=== PATIENT | female | born 1945 | race Caucasian/White ===

== ENCOUNTER 2018-01-20 14:35 | Inpatient (IN) | payer MEDICARE ==
[~2018-01-20] VITALS: Ht 165.1 cm; Wt 64.2 kg
[2018-01-20] MEDS ORDERED: DIPHTH/TETANUS/ACEL PERTUSSIS (BOOSTER) 0.5 ML VIAL/PFS IM ONE (14:42)
[2018-01-20] MEDS ORDERED: ceFAZolin 2 GM PREMIX 50 ML ONE (14:42)
[2018-01-20] MEDS ORDERED: ONDANSETRON HCL 4 MG/2 ML VIAL ONE (14:42)
[2018-01-20 14:44] VITALS: O2SAT 98
--- NOTE | 2018-01-20 14:54 | PD ---
HPI Chief Complaint: trauma alert Time Seen by Provider: 14:51 Travel History International Travel<30 days: No Contact w/Intl Traveler<30days: No Traveled to known affect area: No History of Present Illness HPI The patient is an older female, approximately 72 years old, who presents emergency department for possible open left ankle fracture. The patient was called a trauma alert in the field. The patient states she was walking with her walker earlier today when she lost balance and fell. The patient states she injured her left ankle during the fall. She denies striking her head or any loss of consciousness during the fall. She complains of pain over the medial aspect of the left ankle with her there is a laceration present. She does have a history of multiple left lower extremity surgeries in the past and is on chronic medications including pain medications and Valium. She denies any alcohol use. She denies any presyncopal symptoms such his lightheadedness, dizziness, chest pain, shortness of breath, or palpitations. Patient states she is allergic to morphine, was told as a child she is allergic to morphine, states fentanyl works well for her pain. The patient cannot recall her primary physician in the local area, goes back and forth from [place] to [place] depending on the time of year. PFSH Past Medical History Narrative Medical Anxiety, depression, chronic pain Past Surgical History Narrative Surgical Multiple left lower extremity surgeries Social History Tobacco Use: No Allergies-Medications (Allergen,Severity, Reaction): Coded Allergies: morphine (Verified Allergy, Unknown, 01/20/18) Review of Systems Except as stated in HPI: all other systems reviewed are Neg HENT: No: Headaches, Neck Pain Cardiovascular: No: Chest Pain or Discomfort Respiratory: No: Shortness of Breath Gastrointestinal: No: Nausea, Vomiting, Abdominal Pain Musculoskeletal: Positive: Pain Skin: Positive Other (as noted in the history of present illness) Neurologic: No: Headache, Paresthesia, Sensory Disturbance Psychiatric: Positive: Anxiety, Depression Physical Exam Narrative GENERAL: Awake, alert, 72-year-old female who appears her stated age and is in no acute respiratory distress. Appears slightly sedated. SKIN: Focused skin assessment warm/dry. HEAD: Atraumatic. Normocephalic. EYES: Pupils equal and round. No injection or drainage. ENT: No nasal bleeding or discharge. Mucous membranes pink and moist. NECK: Trachea midline. No JVD. CARDIOVASCULAR: Regular rate and rhythm. No murmur appreciated. RESPIRATORY: No accessory muscle use. Clear to auscultation. Breath sounds equal bilaterally. GASTROINTESTINAL: Abdomen soft, non-tender, nondistended. No rebound tenderness. MUSCULOSKELETAL: Left lower extremity reveals a laceration over the medial aspect of the left lower extremity crossing from just mid to the medial malleus superiorly, measures approximately 12 cm in length. Positive Doppler dorsalis pedal pulse. NEUROLOGICAL: Awake and alert. No obvious cranial nerve deficits. Motor grossly within normal limits. Normal speech. Sensation is intact to the medial , lateral, dorsal aspect. The patient is oriented to person, place, month, and year. PSYCHIATRIC: Appears somewhat anxious. Data Data Last Documented VS Vital Signs Date Time Temp Pulse Resp B/P (MAP) Pulse Ox O2 Delivery O2 Flow Rate FiO2 01/20/18 15:22 97.1 67 18 118/58 (78) 97 01/20/18 14:44 21 Orders Orders Fentanyl Inj (Fentanyl Inj) (01/20/18 14:42) Cefazolin 2 Gm Premix (Ancef 2 Gm Premix (01/20/18 14:42) Ondansetron Inj (Zofran Inj) (01/20/18 14:42) Sjsm-Eht-Psvndl (Booster) Inj (Boostrix (01/20/18 14:42) I-Stat Profile (01/20/18 14:46) Complete Blood Count With Diff (01/20/18 14:46) Prothrombin Time / Inr (Pt) (01/20/18 14:46) Act Partial Throm Time (Ptt) (01/20/18 14:46) Type And Screen (01/20/18 14:46) Chest, Single Ap (01/20/18 14:46) Pelvis, Ap Only (Routine) (01/20/18 14:46) Ct Brain W/O Iv Contrast(Rout) (01/20/18 14:46) Iv Access Insert/Monitor (01/20/18 14:46) Ecg Monitoring (01/20/18 14:46) Oximetry (01/20/18 14:46) Oxygen Administration (01/20/18 14:46) Tibia/Fibula (Ap/Lat) (01/20/18 ) Ct Ankle W/O Contrast (01/20/18 ) Consult Orthopedic (01/20/18 ) Labs Laboratory Tests Test 01/20/18 14:35 White Blood Count 4.2 TH/MM3 Red Blood Count 3.08 MIL/MM3 Hemoglobin 9.0 GM/DL Bedside Hemoglobin 7.8 G/DL Hematocrit 26.2 % Bedside Hematocrit 23.0 % Mean Corpuscular Volume 84.9 FL Mean Corpuscular Hemoglobin 29.1 PG Mean Corpuscular Hemoglobin Concent 34.3 % Red Cell Distribution Width 16.4 % Platelet Count 196 TH/MM3 Mean Platelet Volume 7.7 FL Neutrophils (%) (Auto) 66.3 % Lymphocytes (%) (Auto) 24.0 % Monocytes (%) (Auto) 7.9 % Eosinophils (%) (Auto) 1.4 % Basophils (%) (Auto) 0.4 % Neutrophils # (Auto) 2.8 TH/MM3 Lymphocytes # (Auto) 1.0 TH/MM3 Monocytes # (Auto) 0.3 TH/MM3 Eosinophils # (Auto) 0.1 TH/MM3 Basophils # (Auto) 0.0 TH/MM3 CBC Comment DIFF FINAL Differential Comment Prothrombin Time 11.2 SEC Prothromb Time International Ratio 1.1 RATIO Activated Partial Thromboplast Time 26.4 SEC Bedside Sodium 142 MMOL/L Bedside Potassium 3.7 MMOL/L Bedside Chloride MMOL/L Bedside Blood Urea Nitrogen 24 MG/DL Bedside Creatinine 0.9 MG/DL Bedside Glucose 83 MG/DL [facility] Medical Screen Exam Complete: Yes Emergency Medical Condition: Yes Medical Record Reviewed: Yes Interpretation(s) Laboratory Tests Test 01/20/18 14:35 White Blood Count 4.2 TH/MM3 Red Blood Count 3.08 MIL/MM3 Hemoglobin 9.0 GM/DL Bedside Hemoglobin 7.8 G/DL Hematocrit 26.2 % Bedside Hematocrit 23.0 % Mean Corpuscular Volume 84.9 FL Mean Corpuscular Hemoglobin 29.1 PG Mean Corpuscular Hemoglobin Concent 34.3 % Red Cell Distribution Width 16.4 % Platelet Count 196 TH/MM3 Mean Platelet Volume 7.7 FL Neutrophils (%) (Auto) 66.3 % Lymphocytes (%) (Auto) 24.0 % Monocytes (%) (Auto) 7.9 % Eosinophils (%) (Auto) 1.4 % Basophils (%) (Auto) 0.4 % Neutrophils # (Auto) 2.8 TH/MM3 Lymphocytes # (Auto) 1.0 TH/MM3 Monocytes # (Auto) 0.3 TH/MM3 Eosinophils # (Auto) 0.1 TH/MM3 Basophils # (Auto) 0.0 TH/MM3 CBC Comment DIFF FINAL Differential Comment Prothrombin Time 11.2 SEC Prothromb Time International Ratio 1.1 RATIO Activated Partial Thromboplast Time 26.4 SEC Bedside Sodium 142 MMOL/L Bedside Potassium 3.7 MMOL/L Bedside Chloride MMOL/L Bedside Blood Urea Nitrogen 24 MG/DL Bedside Creatinine 0.9 MG/DL Bedside Glucose 83 MG/DL Last Impressions Pelvis X-Ray 01/20/18 1446 Signed Impressions: Service Date/Time: Saturday, January 20, 2018 14:36 - CONCLUSION: 1. No acute fracture identified. Osteopenia. Shant Torres MD Head CT 01/20/18 1446 Signed Impressions: Service Date/Time: Saturday, January 20, 2018 14:56 - CONCLUSION: 1. No acute intracranial abnormalities. Chronic white matter ischemic changes. Shant Torres MD Chest X-Ray 01/20/18 1446 Signed Impressions: Service Date/Time: Saturday, January 20, 2018 14:36 - CONCLUSION: 1. Mild basilar airspace disease. No significant effusion. Shant Torres MD Tibia/Fibula X-Ray 01/20/18 0000 Signed Impressions: Service Date/Time: Saturday, January 20, 2018 14:36 - CONCLUSION: 1. Medial and lateral malleolar fractures. Osteopenia. Previous resection of the distal segment of fibula. Shant Torres MD Lower Extremity CT 01/20/18 0000 Signed Impressions: Service Date/Time: Saturday, January 20, 2018 15:01 - CONCLUSION: 1. Mildly displaced trimalleolar fracture with soft tissue laceration medially and air within the soft tissues around the ankle. Diffuse osteopenia. Shant Torres MD Differential Diagnosis Differential diagnosis includes open ankle fracture, open ankle dislocation, laceration, abrasion, contusion, postoperative changes, mechanical fall, syncope. Narrative Course ATLS protocol was followed. The patient's airway, breathing, circulation were intact upon arrival. IVs were established, labs are drawn and sent, the patient was placed on cardiac telemetry monitoring and continuous pulse oximetry monitoring. Chest x-ray, pelvis x-ray, x-ray left tibia/fibular were obtained. Chest x-ray and pelvis x-ray are unremarkable. X-ray of the left tibia/fibular reveals what appears to be postoperative changes with the mid distal fibula missing, there appears to be an acute fracture of the lateral malleus and of the medial malleus. The patient's pain was however with a Betadine dressing, short posterior leg split was applied. The patient was administered fentanyl, Zofran, Ancef, and gentamicin. The patient went to CT for CT of the brain and left ankle. A call was placed to the on-call orthopedic surgeon, Dr. Trejo, at 3:01 PM. I discussed the patient with Dr. Trejo, he reviewed the x-rays, he recommends nothing by mouth after midnight for possible surgical evaluation in washout tomorrow. The patient was evaluated and seen by the trauma surgeon, Dr. Dwyer, at 3:35 PM. The patient will be admitted to medical floor. Trauma Alert - Level Two Trauma Alert Level Two: Full trauma team activate Time Surgeon Called: 14:14 Physician Communication I discussed the patient with the orthopedic surgeon and the trauma surgeon. The patient will be admitted to the trauma service. Diagnosis Diagnosis: Primary Impression: Open left ankle fracture Qualified Codes: S82.892B - Other fracture of left lower leg, initial encounter for open fracture type I or II Admitting Physician Requests: Admit Condition: Stable Matias Sifuentes MD Jan 20, 2018 14:54
[2018-01-20 15:09] LABS: AUTOMATED NEUTROPHIL # 2.8 TH/MM3 (1.8-7.7); BASOPHIL % 0.4 % (0.0-2.0); EOSINOPHIL # 0.1 TH/MM3 (0-0.4); EOSINOPHIL % 1.4 % (0.0-4.0); HEMATOCRIT 26.2 % (35.0-46.0); MEAN CELL VOLUME 84.9 FL (80.0-100.0); MEAN CORPUSCULAR HEMOGLOBIN 29.1 PG (27.0-34.0); MEAN CORPUSCULAR HGB CONC 34.3 % (32.0-36.0); MEAN PLATELET VOLUME 7.7 FL (7.0-11.0); MONO % 7.9 % (0.0-8.0); MONOCYTE # 0.3 TH/MM3 (0-0.9); NEUT % 66.3 % (16.0-70.0); PLATELET COUNT 196 TH/MM3 (150-450); RED BLOOD COUNT 3.08 MIL/MM3 (4.00-5.30); RED CELL DISTRIBUTION WIDTH 16.4 % (11.6-17.2); WHITE BLOOD COUNT 4.2 TH/MM3 (4.0-11.0)
--- NOTE | 2018-01-20 15:10 | RADRPT ---
EXAM DATE/TIME: 01/20/2018 14:56 [facility] COMPARISON: No previous studies available for comparison. INDICATIONS : Trauma alert, fall from standing. RADIATION DOSE: 35.54 CTDIvol (mGy) MEDICAL HISTORY : Non-responsive. SURGICAL HISTORY : Non-responsive. ENCOUNTER: Initial ACUITY: 1 day PAIN SCALE: Non-responsive LOCATION: Bilateral head TECHNIQUE: Multiple contiguous axial images were obtained of the head. Using automated exposure control and adj ustment of the mA and/or kV according to patient size, radiation dose was kept as low as reasonably a chievable to obtain optimal diagnostic quality images. DICOM format image data is available electro nically for review and comparison. FINDINGS: White matter ischemic changes. Intracranial mass, hemorrhage or shift. No hydrocephalus. No acute bon y abnormalities. Mucosal thickening ethmoids. CONCLUSION: 1. No acute intracranial abnormalities. Chronic white matter ischemic changes. Shant Torres MD on January 20, 2018 at 15:06 Board Certified Radiologist. This report was verified electronically.
--- NOTE | 2018-01-20 15:20 | RADRPT ---
EXAM DATE/TIME: 01/20/2018 14:36 [facility] COMPARISON: No previous studies available for comparison. INDICATIONS : Trauma alert. Left ankle pain and laceration post fall. MEDICAL HISTORY : Unobtainable. SURGICAL HISTORY : Unobtainable. ENCOUNTER: Initial ACUITY: 1 day PAIN SCORE: 10/10 LOCATION: Left tibia/fibula. FINDINGS: A portion of the distal fibular shaft has been resected. There are fractures of the medial and latera l malleolus. Air in the soft tissues is present. Bones are osteopenic. CONCLUSION: 1. Medial and lateral malleolar fractures. Osteopenia. Previous resection of the distal segment of fi bula. Shant Torres MD on January 20, 2018 at 15:15 Board Certified Radiologist. This report was verified electronically.
--- NOTE | 2018-01-20 15:21 | RADRPT ---
EXAM DATE/TIME: 01/20/2018 14:36 [facility] COMPARISON: No previous studies available for comparison. INDICATIONS : Trauma alert. Fall. MEDICAL HISTORY : Unobtainable. SURGICAL HISTORY : Unobtainable. ENCOUNTER: Initial ACUITY: 1 day PAIN SCORE: 0/10 LOCATION: pelvis. FINDINGS: A single frontal view of the pelvis demonstrates no evidence of fracture. The bony pelvic ring is in tact. Bony mineralization is normal. The soft tissues are intact. CONCLUSION: 1. No acute fracture identified. Osteopenia. Shant Torres MD on January 20, 2018 at 15:18 Board Certified Radiologist. This report was verified electronically.
[2018-01-20 15:22] VITALS: BP 118/58; PULSE 67; RESP 18; TEMP 97.1; O2SAT 97
--- NOTE | 2018-01-20 15:22 | RADRPT ---
EXAM DATE/TIME: 01/20/2018 14:36 [facility] COMPARISON: No previous studies available for comparison. INDICATIONS : Trauma alert. Fall. MEDICAL HISTORY : Unobtainable. SURGICAL HISTORY : Unobtainable. ENCOUNTER: Initial ACUITY: 1 day PAIN SCORE: 0/10 LOCATION: Bilateral chest FINDINGS: A single view of the chest demonstrates mild basilar airspace disease. [id number] in superior vena cava. Heart size upper limits normal. Previous fixation lower cervical spine. CONCLUSION: 1. Mild basilar airspace disease. No significant effusion. Shant Torres MD on January 20, 2018 at 15:20 Board Certified Radiologist. This report was verified electronically.
--- NOTE | 2018-01-20 15:26 | RADRPT ---
EXAM DATE/TIME: 01/20/2018 15:01 [facility] COMPARISON: No previous studies available for comparison. INDICATIONS : Trauma alert, fall from standing. RADIATION DOSE: 7.29 CTDIvol (mGy) MEDICAL HISTORY : Non-responsive. SURGICAL HISTORY : Non-responsive. ENCOUNTER: Initial ACUITY: 1 day PAIN SCALE: Non-responsive LOCATION: Left ankle TECHNIQUE: Volumetric scanning of the ankle was performed. Using automated exposure control and adjustment of t he mA and/or kV according to patient size, radiation dose was kept as low as reasonably achievable to obtain optimal diagnostic quality images. DICOM format image data is available electronically for review and comparison. FINDINGS: There are mildly displaced fractures through the medial lateral malleolus and there is also a mildly displaced posterior malleolar fracture. The bones are osteopenic. There is a laceration in the soft t issues medially with air in the soft tissues. CONCLUSION: 1. Mildly displaced trimalleolar fracture with soft tissue laceration medially and air within the sof t tissues around the ankle. Diffuse osteopenia. Shant Torres MD on January 20, 2018 at 15:22 Board Certified Radiologist. This report was verified electronically.
[2018-01-20 15:28] LABS: INTERNATIONAL NORMALIZED RATIO 1.1 RATIO; PROTHROMBIN TIME - PATIENT 11.2 SEC (9.8-11.6)
[2018-01-20] MEDS ORDERED: MORPHINE SULFATE 4 MG/ML INJ IV PUSH PRN (16:00)
[2018-01-20] MEDS ORDERED: MORPHINE SULFATE 2 MG/ML INJ IV PUSH PRN (16:00)
[2018-01-20] MEDS ORDERED: MISCELLANEOUS NURSING INFORMATION XX SCH (16:00)
[2018-01-20] MEDS ORDERED: ONDANSETRON HCL 4 MG/2 ML VIAL IV PUSH PRN (16:00)
[2018-01-20] MEDS ORDERED: CHLORHEXIDINE GLUCONATE 2 % 1 PACK (2 CLOTHS) TOP PRN (16:00)
--- NOTE | 2018-01-20 16:06 | HHI.HP ---
History of Present Illness Primary Care Physician Unknown Admission Diagnosis Diagnoses: History of Present Illness 72 y.o female with PMHx of MS.chronic pain -seen by the ER as level2 trauma alert after a fall,as she was walking with her walker-patient tripped,work up shows an open left malleolar fx,CT head is negative,GCS 15,HD normal- Review of Systems Constitutional: COMPLAINS OF: Fatigue Endocrine: DENIES: Abnorml menstrual pattern, Heat/cold intolerance, Polydipsia , Polyuria, Polyphagia Eyes: DENIES: Blurred vision, Diplopia, Eye inflammation, Eye pain, Vision loss , Photosensitivity, Double Vision Ears, nose, mouth, throat: DENIES: Tinnitus, Hearing loss, Vertigo, Nasal discharge, Oral lesions, Throat pain, Hoarseness, Ear Pain, Running Nose, Epistaxis, Sinus Pain, Toothache, Odynophagia Respiratory: DENIES: Apneas, Cough, Snoring, Wheezing, Hemoptysis, Sputum production, Shortness of breath Gastrointestinal: DENIES: Abdominal pain, Black stools, Bloody stools, Constipation, Diarrhea, Nausea, Vomiting, Difficulty Swallowing, Anorexia Musculoskeletal: DENIES: Joint pain, Muscle aches, Stiffness, Joint Swelling, Back pain, Neck pain Integumentary: DENIES: Abnormal pigmentation, Pruritus, Rash, Nail changes, Breast masses, Breast skin changes, Nipple discharge Hematologic/lymphatic: DENIES: Bruising, Lymphadenopathy Immunologic/allergic: DENIES: Eczema, Urticaria Neurologic: COMPLAINS OF: Abnormal gait, Poor Balance Psychiatric: DENIES: Anxiety, Confusion, Mood changes, Depression, Hallucinations, Agitation, Suicidal Ideation, Homicidal Ideation, Delusions Past Family Social History Allergies: Coded Allergies: morphine (Verified Allergy, Unknown, 01/20/18) Past Medical History spinal fusion Past Surgical History MS,chronic pain Reported Medications pain [id number] recall Family History none Social History retired lives in [place] Physical Exam Vital Signs Vital Signs Date Time Temp Pulse Resp B/P (MAP) Pulse Ox O2 Delivery O2 Flow Rate FiO2 01/20/18 15:22 97.1 67 18 118/58 (78) 97 01/20/18 14:44 98 21 Physical Exam GENERAL: This is a well-nourished, well-developed patient, in no apparent distress. SKIN: . Cool and dry. HEAD: Atraumatic. Normocephalic. No temporal or scalp tenderness. EYES: Pupils equal round and reactive. Extraocular motions intact. No injection or drainage. ENT: Nose without bleedin. Airway patent. NECK: Trachea midline. No JVD or lymphadenopathy. Supple, nontender CARDIOVASCULAR: Regular rate and rhythm without murmurs, gallops, or rubs. RESPIRATORY: Clear to auscultation. Breath sounds equal bilaterally. No wheezes , rales, or rhonchi. GASTROINTESTINAL: Abdomen soft, non-tender, nondistended. No guarding. MUSCULOSKELETAL: left LE swelling deformity,open wound 10 cm-good DP,splint applied. NEUROLOGICAL: Awake and alert. Cranial nerves II through XII intact. Motor and sensory grossly within normal limits. Five out of 5 muscle strength in all muscle groups. Normal speech. Laboratory Laboratory Tests Test 01/20/18 14:35 White Blood Count 4.2 Red Blood Count 3.08 Hemoglobin 9.0 Bedside Hemoglobin 7.8 Hematocrit 26.2 Bedside Hematocrit 23.0 Mean Corpuscular Volume 84.9 Mean Corpuscular Hemoglobin 29.1 Mean Corpuscular Hemoglobin Concent 34.3 Red Cell Distribution Width 16.4 Platelet Count 196 Mean Platelet Volume 7.7 Neutrophils (%) (Auto) 66.3 Lymphocytes (%) (Auto) 24.0 Monocytes (%) (Auto) 7.9 Eosinophils (%) (Auto) 1.4 Basophils (%) (Auto) 0.4 Neutrophils # (Auto) 2.8 Lymphocytes # (Auto) 1.0 Monocytes # (Auto) 0.3 Eosinophils # (Auto) 0.1 Basophils # (Auto) 0.0 CBC Comment DIFF FINAL Differential Comment Prothrombin Time 11.2 Prothromb Time International Ratio 1.1 Activated Partial Thromboplast Time 26.4 Bedside Sodium 142 Bedside Potassium 3.7 Bedside Chloride Bedside Blood Urea Nitrogen 24 Bedside Creatinine 0.9 Bedside Glucose 83 Result Diagram: 01/20/18 1435 Caprini VTE Risk Assessment Caprini VTE Risk Assessment: Mod/High Risk (score >= 2) VTE Pharm Contraindication: High risk for bleeding Caprini Risk Assessment Model Point Value = 1 Point Value = 2 Point Value = 3 Point Value = 5 Age 41-60 Minor surgery BMI > 25 kg/m2 Swollen legs Varicose veins or History of unexplained or recurrent spontaneous Oral contraceptives or hormone replacement Sepsis (< 1 month) Serious lung disease, including pneumonia (< 1 month) Abnormal pulmonary function Acute myocardial infarction Congestive heart failure (< 1 month) History of inflammatory bowel disease Medical patient at bed rest Age 61-74 Arthroscopic surgery Major open surgery (> 45 min) Laparoscopic surgery (> 45 min) Malignancy Confined to bed (> 72 hours) Immobilizing plaster cast Central venous access Age >= 75 History of VTE Family history of VTE Factor V Leiden Prothrombin [id number] Lupus anticoagulant Anticardiolipin antibodies Elevated serum homocysteine Heparin-induced thrombocytopenia Other congenital or acquired thrombophilia Stroke (< 1 month) Elective arthroplasty Hip, pelvis, or leg fracture Acute spinal cord injury (< 1 month) Prophylaxis Regimen Total Risk Factor Score Risk Level Prophylaxis Regimen 0-1 Low Early ambulation 2 Moderate Order ONE of the following: *Sequential Compression Device (SCD) *Heparin 5000 units SQ BID 3-4 Higher Order ONE of the following medications: *Heparin 5000 units SQ TID *Enoxaparin/Lovenox 40 mg SQ daily (WT < 150 kg, CrCl > 30 mL/min) *Enoxaparin/Lovenox 30 mg SQ daily (WT < 150 kg, CrCl > 10-29 mL/min) *Enoxaparin/Lovenox 30 mg SQ BID (WT < 150 kg, CrCl > 30 mL/min) AND/OR *Sequential Compression Device (SCD) 5 or more Highest Order ONE of the following medications: *Heparin 5000 units SQ TID (Preferred with Epidurals) *Enoxaparin/Lovenox 40 mg SQ daily (WT < 150 kg, CrCl > 30 mL/min) *Enoxaparin/Lovenox 30 mg SQ daily (WT < 150 kg, CrCl > 10-29 mL/min) *Enoxaparin/Lovenox 30 mg SQ BID (WT < 150 kg, CrCl > 30 mL/min) AND *Sequential Compression Device (SCD) Assessment and Plan Assessment and Plan open trimalleolar fx left admit to med/surg pain control ortho consult-case dw ortho surgeon by the ER physician iv abx given-will be continued medicine consult Anna Dwyer MD Jan 20, 2018 16:06
[2018-01-20] MEDS: cefTRIAXone INJ 1,000 MG in SODIUM CHLORIDE 0.9% INJ 100 ML IV SCH (17:03)
[2018-01-20] MEDS: HYDROmorphone HCL PF 2 MG/ML VIAL IV PUSH PRN (17:03)
--- NOTE | 2018-01-20 17:03 | PD.CONS ---
HPI Service [facility] Consult Requested By Reason for Consult Medical management Primary Care Physician Unknown Diagnoses: (1) Multiple sclerosis (2) Open left ankle fracture History of Present Illness Vira Wong female brought to ED under trauma alter after falling at home and sustaining fracture to left ankle. Patient repots a PMH of MS, chronic pain and recent treatment for UTI. is at bedside and repots patient was recently discharged from [facility]. She was treated for UTI and then discharged home. Patient continues to have dysuria along with fevers although does not repot most recent episode of fever. She follows up with her PCP and had UA done this past Sunday with pending results. Patient repots that today she was home alone and was making her way to the bathroom with the use of her walker when she fell. She repots that she does not clearly remember how she fell , but does remember protecting her head as much as possible. was out and patient reports she was on the floor for 1.5hrs before she was discovered by . She is currently having left leg pain and right leg pain. Repots left leg pain worse and describes pain as throbbing, nurse at bedside to administer Dilaudid, patient asking for Fentanyl since this is the only thing that works for her pain per patient. Nurse verifies with patient and she is agreeable after all to take Dilaudid for pain. Patient continues to repots suprapubic pain as well as dysuria, no chills, nausea, vomiting, cough, SOB or chest pain. She repots that at home she will have diarrhea and constipation alternating. She does not remember her last BM, states it has been several day, repots she takes MiraLAX BID at home. She has been following up with a neurologist in [place] for her MS and repots that she was due to be started on a new medication for this once her hepatitis panel came back negative. She will often have tremors and jerks due to MS. Review of Systems Except as stated in HPI: all other systems reviewed are Neg Past Family Social History Allergies: Coded Allergies: morphine (Verified Allergy, Unknown, 01/20/18) Past Medical History MS Chronic pain Past Surgical History 3 cervical neck fusions and Kyphoplasty Tonsillectomy appendectomy Social History Lives at home with recently moved here 6 months ago from [place]. Physical Exam Vital Signs Vital Signs Date Time Temp Pulse Resp B/P (MAP) Pulse Ox O2 Delivery O2 Flow Rate FiO2 01/20/18 15:22 97.1 67 18 118/58 (78) 97 01/20/18 14:44 98 21 Physical Exam GENERAL: This is a well-nourished, well-developed patient, in no apparent distress. SKIN: No rashes, ecchymoses or lesions. Cool and dry. Right ankle with mild redness noted, no ecchymosis noted. HEAD: Atraumatic. Normocephalic. No temporal or scalp tenderness. EYES: Pupils equal round and reactive. Extraocular motions intact. No scleral icterus. No injection or drainage. ENT: Nose without bleeding, purulent drainage. Throat without erythema. Airway patent. NECK: Trachea midline. No JVD. Supple, nontender. CARDIOVASCULAR: Regular rate and rhythm without murmurs, gallops, or rubs. RESPIRATORY: Clear to auscultation. Breath sounds equal bilaterally. No wheezes , rales, or rhonchi. GASTROINTESTINAL: Abdomen soft, suprapubic tenderness with palpation, nondistended. No guarding. MUSCULOSKELETAL: Bilateral upper extremities with scattered ecchymotic spots. Right calf tenderness, no warmth, edema or redness on calf noted. Left leg in splint, toes pink and warm. NEUROLOGICAL: Awake and alert. Cranial nerves II through XII intact. Motor and sensory grossly within normal limits. Moves bilateral upper extremities without difficulty, and RLE. Normal speech. Laboratory Laboratory Tests Test 01/20/18 14:35 White Blood Count 4.2 Red Blood Count 3.08 Hemoglobin 9.0 Bedside Hemoglobin 7.8 Hematocrit 26.2 Bedside Hematocrit 23.0 Mean Corpuscular Volume 84.9 Mean Corpuscular Hemoglobin 29.1 Mean Corpuscular Hemoglobin Concent 34.3 Red Cell Distribution Width 16.4 Platelet Count 196 Mean Platelet Volume 7.7 Neutrophils (%) (Auto) 66.3 Lymphocytes (%) (Auto) 24.0 Monocytes (%) (Auto) 7.9 Eosinophils (%) (Auto) 1.4 Basophils (%) (Auto) 0.4 Neutrophils # (Auto) 2.8 Lymphocytes # (Auto) 1.0 Monocytes # (Auto) 0.3 Eosinophils # (Auto) 0.1 Basophils # (Auto) 0.0 CBC Comment DIFF FINAL Differential Comment Prothrombin Time 11.2 Prothromb Time International Ratio 1.1 Activated Partial Thromboplast Time 26.4 Bedside Sodium 142 Bedside Potassium 3.7 Bedside Chloride Bedside Blood Urea Nitrogen 24 Bedside Creatinine 0.9 Bedside Glucose 83 Result Diagram: 01/20/18 1435 Imaging Last Impressions Pelvis X-Ray 01/20/18 1446 Signed Impressions: Service Date/Time: Saturday, January 20, 2018 14:36 - CONCLUSION: 1. No acute fracture identified. Osteopenia. Shant Torres MD Head CT 01/20/18 1446 Signed Impressions: Service Date/Time: Saturday, January 20, 2018 14:56 - CONCLUSION: 1. No acute intracranial abnormalities. Chronic white matter ischemic changes. Shant Torres MD Chest X-Ray 01/20/18 1446 Signed Impressions: Service Date/Time: Saturday, January 20, 2018 14:36 - CONCLUSION: 1. Mild basilar airspace disease. No significant effusion. Shant Torres MD Tibia/Fibula X-Ray 01/20/18 0000 Signed Impressions: Service Date/Time: Saturday, January 20, 2018 14:36 - CONCLUSION: 1. Medial and lateral malleolar fractures. Osteopenia. Previous resection of the distal segment of fibula. Shant Torres MD Lower Extremity CT 01/20/18 0000 Signed Impressions: Service Date/Time: Saturday, January 20, 2018 15:01 - CONCLUSION: 1. Mildly displaced trimalleolar fracture with soft tissue laceration medially and air within the soft tissues around the ankle. Diffuse osteopenia. Shant Torres MD Assessment and Plan Assessment and Plan Gender female admitted as a trauma alert after falling at home with open left ankle fracture. Patient seen and evaluated by ED physician and trauma MD, will be admitted to under trauma services. [facility] consulted to assist with ongoing medical management of patient. Open left medial and lateral malleolar fractures - Patient seen and evaluated by trauma services, admit to medical surgical floor. - Left leg/foot splint applied in the ED, received fentanyl, Zofran, Ancef, and gentamicin - Head CT with no acute intracranial abnormalities -Pelvis x-ray with no acute fractures -Rocephin IV continued by trauma services - Orthopedic services consulted for likely surgical intervention in the AM, n.p.o. after midnight -Pain control with IV Dilaudid Right calf pain - No visible injury noted although does endorse pain with calf palpation, full range of motion. -We will check right lower extremity ultrasound. MS -Patient reports that she is on baclofen as well as Neurontin at home with little relief -Recently seen by her neurologist with plans of starting her on new medication once hepatitis panel resulted -Offered to home dose of baclofen as well as Neurontin, nurse to med rec. UTI -Reports fevers at home prior to fall and ongoing dysuria. Recently had a UA done this past Sunday. -CBC reviewed with no leukocytosis, afebrile on presentation -Offered to recheck UA, declined. Would like to await results of Fridays UA by PCP DVT prophylaxis-hold due to planned surgical procedure in AM Discussed with patient and at bedside. Thank you for this consultation, will continue to follow along. Problem Qualifiers (1) Open left ankle fracture: Qualified Codes: S82.892B - Other fracture of left lower leg, initial encounter for open fracture type I or II Melanie Palomino Jan 20, 2018 17:03
[2018-01-20] MEDS: LACTATED RINGER'S 1000 ML INJ 1,000 ML IV SCH (17:59)
[2018-01-20] MEDS: ACETAMINOPHEN 1000 MG/100 ML 100 ML IV SCH ×2 (17:59→21:27)
--- NOTE | 2018-01-20 18:04 | RADRPT ---
EXAM DATE/TIME: 01/20/2018 17:29 [facility] COMPARISON: No previous studies available for comparison. INDICATIONS : Fall. MEDICAL HISTORY : Gait problems. Fatigue. Ankle fracture. SURGICAL HISTORY : None. ENCOUNTER: Initial ACUITY: 1 day PAIN SCORE: 2/10 LOCATION: Bilateral neck PEAK SYSTOLIC VELOCITIES (cm/sec): ICA/CCA RATIO: Right: 0.8 Left: 0.9 ICA: Right: 79.8 Left: 102.7 CCA: Right: 95.7 Left: 109.5 ECA: Right: 55.6 Left: 93.8 VERTEBRAL: Right: 51.2 antegrade Left: 64.2 antegrade Elevated flow velocities and ICA/CCA ratios have been found to correlate with increased degrees of vessel stenosis, calculated as percentage of diameter relative to a normal segment of distal ICA/CCA FINDINGS: RIGHT CAROTID: No significant stenosis is visualized. The waveforms are within normal limits. LEFT CAROTID: No significant stenosis is visualized. The waveforms are within normal limits. VERTEBRAL ARTERIES: Antegrade flow is seen in both vertebral arteries. MISCELLANEOUS: None. CONCLUSION: Normal hemodynamic profile both carotids. Satinder López MD on January 20, 2018 at 18:01 Board Certified Radiologist. This report was verified electronically.
[2018-01-20 18:06] VITALS: BP 100/52; PULSE 73; RESP 18; O2SAT 99
[2018-01-20] MEDS ORDERED: LORazepam 2 MG/ML VIAL ONE (19:09)
--- NOTE | 2018-01-20 19:16 | RADRPT ---
EXAM DATE/TIME: 01/20/2018 18:54 [facility] COMPARISON: No previous studies available for comparison. INDICATIONS : Right leg pain. MEDICAL HISTORY : Gait problems. Fatigue. Ankle fracture. SURGICAL HISTORY : ENCOUNTER: Initial ACUITY: 2 day PAIN SCORE: 6/10 LOCATION: Right leg. TECHNIQUE: Venous ultrasound of the leg was performed from the inguinal ligament to the proximal calf. Real-dyllan e, color Doppler and spectral tracing, compression and augmentation techniques were used. FINDINGS: There is normal compressibility of the deep venous system from the inguinal region to the proximal ca lf. No echogenic clot is seen in the lumen of the common femoral, femoral, popliteal, and posterior tibial veins. There is a normal response of the venous system to proximal and distal augmentation an d respiration. CONCLUSION: 1. Negative for deep venous thrombosis. Satinder López MD on January 20, 2018 at 19:13 Board Certified Radiologist. This report was verified electronically.
[2018-01-20 20:00] VITALS: BP 138/95; PULSE 72; RESP 18; TEMP 97.2; O2SAT 98
[2018-01-20] MEDS ORDERED: DOCUSATE SODIUM 100 MG CAP PO SCH (21:00)
[2018-01-20] MEDS: FAMOTIDINE 20 MG TAB PO SCH (21:26)
[2018-01-20] MEDS: MAGNESIUM HYDROXIDE SUSP 30 ML CUP PO SCH (21:26)
[2018-01-21 00:48] VITALS: BP 91/45; PULSE 91; RESP 18; TEMP 96.6; O2SAT 92
[2018-01-21] MEDS ORDERED: TYLE325T PO (00:51)
[2018-01-21] MEDS ORDERED: LACTCHW3 CHEW (00:51)
[2018-01-21] MEDS ORDERED: DIME240C PO (00:51)
[2018-01-21] MEDS ORDERED: POLY17S PO (00:51)
[2018-01-21] MEDS ORDERED: FLUO20CA12 PO (00:51)
[2018-01-21] MEDS ORDERED: THYR15 PO (00:51)
[2018-01-21] MEDS ORDERED: PSYLPOW4 PO (00:51)
[2018-01-21] MEDS ORDERED: TRAZ300T2 PO (00:51)
[2018-01-21] MEDS ORDERED: ASPI1TAB57 PO (00:51)
[2018-01-21] MEDS ORDERED: FLUC200T2 PO (00:51)
[2018-01-21] MEDS ORDERED: DIAZ2TAB PO (00:51)
[2018-01-21] MEDS ORDERED: BUPR1TAB70 PO (00:51)
[2018-01-21] MEDS ORDERED: VITA1000 PO (00:51)
[2018-01-21] MEDS ORDERED: SENN8.6T81 PO (00:51)
[2018-01-21] MEDS ORDERED: MIRA25TA PO (00:51)
[2018-01-21] MEDS ORDERED: PANT20TA2 PO (00:51)
[2018-01-21] MEDS ORDERED: ONDA4TAB7 SL (00:51)
[2018-01-21] MEDS ORDERED: CEFU1TAB20 PO (00:51)
[2018-01-21] MEDS ORDERED: TEMA7.5C PO (00:51)
[2018-01-21] MEDS ORDERED: GABA300C5 PO (00:51)
[2018-01-21] MEDS ORDERED: OXYC-395 PO (00:51)
[2018-01-21] MEDS ORDERED: DOCU8.6T PO (00:51)
[2018-01-21] MEDS: HYDROmorphone HCL PF 2 MG/ML VIAL IV PUSH PRN ×5 (02:12→21:58)
[2018-01-21] MEDS ORDERED: CHLORHEXIDINE GLUCONATE 2 % 1 PACK (2 CLOTHS) TOP SCH (04:00)
[2018-01-21] MEDS: ACETAMINOPHEN 1000 MG/100 ML 100 ML IV SCH ×2 (04:06→10:23)
[2018-01-21] MEDS: cefTRIAXone INJ 1,000 MG in SODIUM CHLORIDE 0.9% INJ 100 ML IV SCH (04:21)
[2018-01-21 04:26] LABS: AUTOMATED NEUTROPHIL # 5.1 TH/MM3 (1.8-7.7); BASOPHIL % 0.3 % (0.0-2.0); EOSINOPHIL # 0.1 TH/MM3 (0-0.4); EOSINOPHIL % 1.4 % (0.0-4.0); HEMATOCRIT 26.4 % (35.0-46.0); HEMOGLOBIN 9.1 GM/DL (11.6-15.3); LYMPHOCYTE # 0.5 TH/MM3 (1.0-4.8); MEAN CELL VOLUME 85.4 FL (80.0-100.0); MEAN CORPUSCULAR HEMOGLOBIN 29.6 PG (27.0-34.0); MEAN CORPUSCULAR HGB CONC 34.7 % (32.0-36.0); MEAN PLATELET VOLUME 7.8 FL (7.0-11.0); MONO % 7.7 % (0.0-8.0); MONOCYTE # 0.5 TH/MM3 (0-0.9); NEUT % 82.6 % (16.0-70.0); PLATELET COUNT 180 TH/MM3 (150-450); RED BLOOD COUNT 3.09 MIL/MM3 (4.00-5.30); RED CELL DISTRIBUTION WIDTH 16.6 % (11.6-17.2); WHITE BLOOD COUNT 6.2 TH/MM3 (4.0-11.0)
[2018-01-21 04:34] VITALS: BP 92/43; PULSE 90; RESP 18; TEMP 96.8; O2SAT 93
[2018-01-21 04:49] LABS: BICARBONATE 26.3 MEQ/L (21.0-32.0)
[2018-01-21] MEDS ORDERED: DIAZEPAM 2 MG TAB PO PRN (07:45)
[2018-01-21 08:00] VITALS: BP 99/50; PULSE 86; RESP 20; TEMP 98.4; O2SAT 97
[2018-01-21] MEDS: GABAPENTIN 300 MG CAP PO SCH ×2 (09:00→18:00)
[2018-01-21] MEDS: DOCUSATE SODIUM 50 MG/SENNA 8.6 MG TAB PO SCH ×2 (09:00→20:30)
[2018-01-21] MEDS: CHOLECALCIFEROL (VIT D3) 1000 UNIT TAB PO SCH (09:00)
[2018-01-21] MEDS: POLYETHYLENE GLYCOL 17 GM PKG PO SCH ×2 (09:00→20:30)
[2018-01-21] MEDS ORDERED: DIMETHYL FUMARATE 240 MG PO SCH (09:00)
[2018-01-21] MEDS: FAMOTIDINE 20 MG TAB PO SCH ×2 (09:00→20:30)
[2018-01-21] MEDS ORDERED: buPROPion HCL 100 MG SUSTAINED RELEASE TAB PO SCH (09:00)
[2018-01-21] MEDS: MAGNESIUM HYDROXIDE SUSP 30 ML CUP PO SCH ×2 (09:00→20:30)
[2018-01-21] MEDS: buPROPion HCL 150 MG SUSTAINED RELEASE TAB PO SCH ×2 (09:41→20:31)
[2018-01-21] MEDS: FLUoxetine HCL 20 MG CAP PO SCH ×2 (09:42→20:29)
[2018-01-21] MEDS ORDERED: GENTAMICIN SULFATE 80 MG/2 ML VIAL ONE ×2 (10:27)
--- NOTE | 2018-01-21 10:31 | PD.ORT.PN ---
Subjective Subjective Remarks Recently discharged from rehabilitation. She has had gait instability and some lightheadedness. She had a trip and fall at home with open ankle injury to left side Objective Vitals Vital Signs Date Time Temp Pulse Resp B/P (MAP) Pulse Ox O2 Delivery O2 Flow Rate FiO2 01/21/18 08:00 98.4 86 20 99/50 (66) 97 01/21/18 04:34 96.8 90 18 92/43 (59) 93 01/21/18 00:48 96.6 91 18 91/45 (60) 92 01/20/18 20:00 97.2 72 18 138/95 (109) 98 01/20/18 19:56 01/20/18 18:52 18 01/20/18 18:47 18 01/20/18 18:06 73 18 100/52 (68) 99 Room Air 01/20/18 15:22 97.1 67 18 118/58 (78) 97 01/20/18 14:44 98 21 I/O 01/20/18 01/20/18 01/20/18 01/21/18 01/21/18 01/21/18 07:00 15:00 23:00 07:00 15:00 23:00 Intake Total 300 ml 711 ml Output Total 550 ml Balance 300 ml 161 ml Intake IV Total 300 ml 711 ml Output Urine Total 550 ml Result Diagram: 01/21/1831601/21/18316 Other Results Laboratory Tests Test 01/20/18 14:35 Prothromb Time International Ratio 1.1 RATIO Prothrombin Time 11.2 SEC (9.8-11.6) Imaging Last 72 hours Impressions Pelvis X-Ray 01/20/181445 Signed Impressions: Service Date/Time: Saturday, January 20, 2018 14:36 - CONCLUSION: 1. No acute fracture identified. Osteopenia. Shant Torres MD Head CT 01/20/181445 Signed Impressions: Service Date/Time: Saturday, January 20, 2018 14:56 - CONCLUSION: 1. No acute intracranial abnormalities. Chronic white matter ischemic changes. Shant Torres MD Chest X-Ray 01/20/181445 Signed Impressions: Service Date/Time: Saturday, January 20, 2018 14:36 - CONCLUSION: 1. Mild basilar airspace disease. No significant effusion. Shant Torres MD Tibia/Fibula X-Ray 01/20/18 0000 Signed Impressions: Service Date/Time: Saturday, January 20, 2018 14:36 - CONCLUSION: 1. Medial and lateral malleolar fractures. Osteopenia. Previous resection of the distal segment of fibula. Shant Torres MD Lower Extremity Ultrasound 01/20/18 0000 Signed Impressions: Service Date/Time: Saturday, January 20, 2018 18:54 - CONCLUSION: 1. Negative for deep venous thrombosis. Satinder López MD Lower Extremity CT 01/20/18 0000 Signed Impressions: Service Date/Time: Saturday, January 20, 2018 15:01 - CONCLUSION: 1. Mildly displaced trimalleolar fracture with soft tissue laceration medially and air within the soft tissues around the ankle. Diffuse osteopenia. Shant Torres MD Carotid Artery Ultrasound 01/20/18 0000 Signed Impressions: Service Date/Time: Saturday, January 20, 2018 17:29 - CONCLUSION: Normal hemodynamic profile both carotids. Satinder López MD Last 24 hours Impressions Pelvis X-Ray 01/20/18 1446 Signed Impressions: Service Date/Time: Saturday, January 20, 2018 14:36 - CONCLUSION: 1. No acute fracture identified. Osteopenia. Shant Torres MD Head CT 01/20/18 1446 Signed Impressions: Service Date/Time: Saturday, January 20, 2018 14:56 - CONCLUSION: 1. No acute intracranial abnormalities. Chronic white matter ischemic changes. Shant Torres MD Chest X-Ray 01/20/18 1446 Signed Impressions: Service Date/Time: Saturday, January 20, 2018 14:36 - CONCLUSION: 1. Mild basilar airspace disease. No significant effusion. Shant Torres MD Objective Remarks Bilateral upper extremities full range of motion neurovascularly intact Right lower extremity: Full range of motion and neurovascularly intact Left lower extremity: No pain with hip or knee range of motion. Splint in place. Intact sensation distally with good capillary refills Assessment & Plan Assessment and Plan Open laceration and trimalleolar ankle fracture Nothing by mouth Surgery this morning for irrigation debridement and possible open reduction internal fixation of left ankle Sign consents Add to Jason Browne Jr. Jan 21, 2018 10:31
--- NOTE | 2018-01-21 10:31 | HHI.PR ---
Subjective Remarks Pt seen and examined. Spend present in the room. Patient endorses pain in left ankle as well as chronic pain from prior neck and back surgeries as well as her MS. Denies chest pain, shortness of breath, nausea, vomiting, or abdominal pain. Reports feeling very weak. Denies dizziness or lightheadedness. Her states she is currently being treated for UTI as an outpatient and had a culture done Sunday. She has had chronic UTIs for some time now and was on nitrofurantoin for prevention. Objective Vital Signs Date Time Temp Pulse Resp B/P (MAP) Pulse Ox O2 Delivery O2 Flow Rate FiO2 01/21/18 08:00 98.4 86 20 99/50 (66) 97 01/21/18 04:34 96.8 90 18 92/43 (59) 93 01/21/18 00:48 96.6 91 18 91/45 (60) 92 01/20/18 20:00 97.2 72 18 138/95 (109) 98 01/20/18 19:56 01/20/18 18:52 18 01/20/18 18:47 18 01/20/18 18:06 73 18 100/52 (68) 99 Room Air 01/20/18 15:22 97.1 67 18 118/58 (78) 97 01/20/18 14:44 98 21 I/O 01/20/18 01/20/18 01/20/18 01/21/18 01/21/18 01/21/18 07:00 15:00 23:00 07:00 15:00 23:00 Intake Total 300 ml 711 ml Output Total 550 ml Balance 300 ml 161 ml Intake IV Total 300 ml 711 ml Output Urine Total 550 ml Result Diagram: 01/21/187 01/21/187 Imaging Pelvis X-Ray 01/20/181445 Signed Impressions: Service Date/Time: Saturday, January 20, 2018 14:36 - CONCLUSION: 1. No acute fracture identified. Osteopenia. Shant Torres MD Head CT 01/20/181445 Signed Impressions: Service Date/Time: Saturday, January 20, 2018 14:56 - CONCLUSION: 1. No acute intracranial abnormalities. Chronic white matter ischemic changes. Shant Torres MD Chest X-Ray 01/20/181445 Signed Impressions: Service Date/Time: Saturday, January 20, 2018 14:36 - CONCLUSION: 1. Mild basilar airspace disease. No significant effusion. Shant Torres MD Tibia/Fibula X-Ray 01/20/18 0000 Signed Impressions: Service Date/Time: Saturday, January 20, 2018 14:36 - CONCLUSION: 1. Medial and lateral malleolar fractures. Osteopenia. Previous resection of the distal segment of fibula. Shant Torres MD Lower Extremity Ultrasound 01/20/18 0000 Signed Impressions: Service Date/Time: Saturday, January 20, 2018 18:54 - CONCLUSION: 1. Negative for deep venous thrombosis. Satinder López MD Lower Extremity CT 01/20/18 0000 Signed Impressions: Service Date/Time: Saturday, January 20, 2018 15:01 - CONCLUSION: 1. Mildly displaced trimalleolar fracture with soft tissue laceration medially and air within the soft tissues around the ankle. Diffuse osteopenia. Shant Torres MD Carotid Artery Ultrasound 01/20/18 0000 Signed Impressions: Service Date/Time: Saturday, January 20, 2018 17:29 - CONCLUSION: Normal hemodynamic profile both carotids. Satinder López MD Objective Remarks GENERAL: Elderly, pale female laying in bed in no acute distress. SKIN: Warm and dry with multiple bruises over her extremities, neck, and chest. HEENT: Pupils equal and round. MMM. NECK: Supple no tender LAD or JVD. HEART: RRR no m/r/g. LUNGS: CTAB without wheezes or crackles. ABDOMEN: Soft, NT, ND. EXTREMITIES: No LE edema or calf tenderness. Left lower extremity soft cast in place. NEURO: Awake and alert. PSYCH: Depressed mood. A/P Problem List: (1) Open left ankle fracture ICD Code: S82.892B - Other fracture of left lower leg, initial encounter for open fracture type I or II Status: Acute (2) UTI (urinary tract infection) ICD Code: N39.0 - Urinary tract infection, site not specified Status: Chronic (3) Vitamin D deficiency ICD Code: E55.9 - Vitamin D deficiency, unspecified Status: Chronic (4) Chronic pain ICD Code: G89.29 - Other chronic pain Status: Chronic (5) Depression ICD Code: F32.9 - Major depressive disorder, single episode, unspecified Status: Chronic (6) Multiple sclerosis ICD Code: G35 - Multiple sclerosis Status: Chronic Assessment and Plan 72 year old female admitted as a trauma alert after falling at home with open left ankle fracture. Patient admitted to traumas service with [facility] consulted to assist with ongoing medical management of patient. 1. Open left medial and lateral malleolar fractures - Patient seen and evaluated by trauma services, admit to medical surgical floor - Left leg/foot splint applied in the ED, received fentanyl, Zofran, Ancef, and gentamicin - Head CT with no acute intracranial abnormalities - Pelvis x-ray with no acute fractures - Injury occurred as patient's legs just "gave out" - likely has osteoporosis. Check vitamin D level - Rocephin IV continued by trauma services - Orthopedics consulted, ORIF today - Pain control with IV Dilaudid - Continue home Oxycodone 2. Right calf pain - No visible injury noted although does endorse pain with calf palpation, full range of motion. - U/S negative for DVT 3. MS - Continuing home Baclofen and Neurontin - Following with neuro as outpatient 4. Chronic UTI - U/A with culture done Sunday but not in system - Check U/A - CBC reviewed with no leukocytosis, afebrile on presentation - Continue Cefuroxime which had been started a few days ago as an outpatient DVT prophylaxis: chemical anticoagulation held in light of surgery Problem Qualifiers (1) Open left ankle fracture: Qualified Codes: S82.892B - Other fracture of left lower leg, initial encounter for open fracture type I or II Joan Marsh MD Jan 21, 2018 10:31
[2018-01-21] MEDS ORDERED: BACL20TA PO (10:55)
[2018-01-21] MEDS: TOLTERODINE TARTRATE 2 MG CAP LA PO SCH (11:00)
[2018-01-21] MEDS ORDERED: BUPR150T5 PO (11:06)
[2018-01-21] MEDS ORDERED: DIAZ10TA PO (11:06)
[2018-01-21] MEDS ORDERED: THYR90TA PO (11:06)
[2018-01-21] MEDS ORDERED: TEMA30CA PO (11:06)
[2018-01-21] MEDS ORDERED: DEXAMETHASONE SOD PHOS 4 MG/ML VIAL IV ONE (12:00)
[2018-01-21] MEDS ORDERED: LIDOCAINE HCL 1% PF 5 ML SYRINGE OTHER ONE (12:00)
[2018-01-21] MEDS ORDERED: ONDANSETRON HCL 4 MG/2 ML VIAL IV ONE (12:00)
[2018-01-21] MEDS ORDERED: NEOSTIGMINE 5 MG/5 ML SYRINGE IV PUSH ONE (12:00)
[2018-01-21] MEDS ORDERED: PROPOFOL 200 MG/20 ML AMP IV ONE (12:00)
[2018-01-21] MEDS ORDERED: LABETALOL HCL 100 MG/20 ML VIAL IV ONE (12:00)
[2018-01-21] MEDS ORDERED: GLYCOPYRROLATE 1 MG/5 ML SYRINGE IV PUSH ONE (12:00)
[2018-01-21] MEDS ORDERED: PHENYLEPH/NS 1000 MCG/10 ML SYR IV ONE (12:00)
[2018-01-21] MEDS ORDERED: diphenhydrAMINE HCL 25 MG CAP PO PRN (12:15)
--- NOTE | 2018-01-21 12:48 | PD.OP ---
cc: Smith Knowles MD Operative Report Date of Surgery: Jan 21, 2018 Preoperative Diagnosis: Open left ankle fracture Postoperative Diagnosis: Procedure: Irrigation and debridement of open left ankle fracture, open reduction internal fixation left ankle trimalleolar fracture Anesthesia: Gen. Surgeon: Smith Knowles Publication Distributor(s): JUDIT Johnson PA-C The surgical procedure was assisted by my physician bankruptcy legal assistant. My P.A. presence was necessary throughout this case for the manipulation and positioning of the surgical extremity. My P.A. was assisting me throughout the duration of this procedure. The skill set of a physician bankruptcy legal assistant was medically necessary to complete this procedure. During the surgical case the medical surgical tech was working at the back table and the physician bankruptcy legal assistant was directly assisting me. Operation and Findings: Implants used : ITS Patient was seen and evaluated preoperatively and found to have a open left displaced ankle trimalleolar fracture. Informed consent was obtained after a detailed discussion of risk and benefits of surgery. The operative site was marked. Patient was brought to the OR, placed on the OR table, and given IV sedation and general endotracheal anesthesia. IV antibiotics were given preoperatively. A timeout procedure was performed. The operative leg was prepped with alcohol followed by Hibiclens and draped in the usual sterile fashion. Procedure began with irrigation and debridement of the open fracture. There was a 8 cm laceration over the medial malleolus. Skin subcutaneous tissue fascia and bone were sharply debrided with scalpel and curette. Overall the wound appeared to be very clean. The wound was now thoroughly irrigated with 3 layers of sterile saline. Next attention was turned towards the medial malleolus fracture. Fracture was visualized. Fracture was cleaned with curettes. Fracture was now reduced and keyed into anatomic alignment. K wires were used to hold provisional fixation. The fracture fragment was relatively small. A guidepin For the 4.0 cannulated screws was placed in a retrograde fashion across the fracture. Fluoroscopy was used to confirm guidepin placement. Cannulated drill was placed over the guidepin. Appropriate length screw was now placed. Good compression was applied. Fluoroscopy confirmed well aligned fracture with well- placed hardware. Attention was turned towards the distal fibula. A four-inch incision was made over the distal fibula. The subcutaneous tissue was dissected with Bovie. The fracture site was visualized. The fracture site was cleaned with curets. The fracture was now reduced. The fracture keyed into anatomic alignment. K-wires were used to h old provisional fixation. A plate was selected and contoured to fit the distal fibula. The plate was provisionally held to bone with K- wires. 3.5 cortical screws were used to compress the plate to bone. Multiple screws were placed above and below the fracture. Next, attention was turned to the syndesmosis. The syndesmosis was stressed. There was no widening of the syndesmosis with external rotation of the ankle. The posterior malleolus fracture was also visualized. This fragment was very small and appeared to be an appropriate alignment. Incisions were thoroughly irrigated. The subcutaneous tissue was closed with 3-0 PDS and the skin was closed with 3-0 nylon. Sterile dressings were applied. A well molded well- padded splint was applied. The patient was transferred to Recovery in stable condition. Needle and sponge counts were correct. Smith Knowles MD Jan 21, 2018 12:48
[2018-01-21] MEDS: BACLOFEN 20 MG TAB PO SCH ×2 (13:00→21:55)
--- NOTE | 2018-01-21 13:00 | MB ---
cc: Smith Thompson MD DATE OF CONSULT: 01/21/2018 REASON FOR CONSULTATION: Open left ankle fracture. CONSULTING PHYSICIAN: Dr. Dwyer. HISTORY OF PRESENT ILLNESS: This patient known as Vira Wong [id number], also known as Yuki Cotton is a 72-year-old female. She has a history of MS. She was recently discharged from [facility]. She had a fall. She was at home trying to go to the bathroom. She was using a walker. She lost her balance and fell. She had immediate left leg pain and swelling. She presented to the emergency room where she was found to have an open left ankle fracture. She is currently awake and alert in the emergency department. Her is at bedside. She denies syncope or loss of consciousness. PAST MEDICAL HISTORY/ILLNESSES: Chronic pain, neuropathy, degenerative disc disease, multiple sclerosis. ALLERGIES: MORPHINE. PAST SURGICAL HISTORY: Neck fusion x 3, kyphoplasty, tonsillectomy, appendectomy. MEDICATIONS: Please see EMR for complete list of inpatient medications, this was reviewed. SOCIAL HISTORY: The patient lives at home with her . They recently moved here from [place]. REVIEW OF SYSTEMS: The patient denies headache, visual changes, neck pain, chest pain, shortness of breath, abdominal pain, nausea, vomiting, recent weight loss or numbness or tingling of extremities. She complains of left ankle pain. She has chronic leg pain. PHYSICAL EXAMINATION: GENERAL: The patient is a 72-year-old female. She is awake. Her is at bedside. She is in no acute distress. VITAL SIGNS: Temperature 98.4, pulse 86, respirations 20, blood pressure 99/50, O2 sat 97% on room air. HEAD: The patient is normocephalic. Pupils are equal. NECK: Soft, nontender. Trachea is midline. ABDOMEN: Soft, nontender, nondistended. EXTREMITIES: Examination of bilateral upper extremities reveals no significant pain with shoulder, elbow or wrist motion. She has intact sensation in all fingers. She has good capillary refill in all fingers. Skin is intact. Examination of the right leg reveals no obvious pain or deformity with hip, knee or ankle motion. Skin is intact. Dorsalis pedis pulse is palpable. Examination of the left leg reveals no significant tenderness around her hip or her knee. She is diffusely tender around the ankle. She has good capillary refill in her toes. She has pain with any ankle motion. There is a traumatic laceration over the medial aspect of the ankle. X-RAYS: X-rays of the left ankle were reviewed. X-rays reveal a mildly displaced medial malleolus fracture. There appears to be postsurgical changes along the left fibula. The syndesmosis appears to be reduced. Medial clear space is also reduced. LABORATORY DATA: White blood cell count is 6.2, hemoglobin is 9.1, hematocrit is 26.4. INR is 1.1. BUN is 21 and creatinine is 1.0. IMPRESSION: 1. Multiple sclerosis. 2. Open left ankle fracture. PLAN: Treatment options were discussed with the patient and her . At this point I would recommend irrigation and debridement of open wound followed by closure of traumatic laceration and possible open reduction, internal fixation of the medial malleolus. Risks of surgery include bleeding, infection, injuries to arteries, nerves and blood vessels, nonunion, malunion, infection, wound complications as well as medical complications including blood clot, stroke, heart attack and . All questions were answered. I will plan on surgery today. A mid-level provider in my office, nurse practitioner or PA, may see this patient on a follow-up basis and continue to implement the objective of this plan including: Starting or adjusting medications, injections of muscle, tendon, bursa or joints, cast application, orthotic or brace application, physical therapy, further radiographic studies including x-ray, MRI, CT, ultrasounds or bone scan, vascular studies, neurologic studies, or other specialist consultations, and proceeding with surgical management as appropriate. MD BALDOMERO Hernandez/AMBROCIO/zayda , 12:03 PM , 12:41 PM
[2018-01-21] MEDS ORDERED: HYDROmorphone HCL PF 2 MG/ML VIAL ONE (13:23)
[2018-01-21] MEDS ORDERED: Post-op Orders (for Pharmacy) XX ONE (14:00)
[2018-01-21] MEDS: ceFAZolin 2 GM PREMIX 50 ML IV SCH ×2 (14:00→21:57)
[2018-01-21] MEDS: LACTATED RINGER'S 1000 ML INJ 1,000 ML IV SCH ×3 (14:00→21:59)
[2018-01-21] MEDS: KETOROLAC TROMETHAMINE 30 MG/ML (IVP) VIAL IVP SCH ×2 (14:00→21:57)
--- NOTE | 2018-01-21 14:25 | RADRPT ---
EXAM DATE/TIME: 01/21/2018 12:37 [place] COMPARISON: No previous studies available for comparison. INDICATIONS : ORIF left ankle fracture. MEDICAL HISTORY : Unobtainable. SURGICAL HISTORY : Unobtainable,. ENCOUNTER: Subsequent ACUITY: 2 days PAIN SCORE: Non-responsive. LOCATION: Left ankle. FINDINGS: Lateral plate and screw fixation of the distal fibula noted. A single screw traverses the medial mall eolus. CONCLUSION: Postsurgical changes. Anton Madison MD on January 21, 2018 at 14:22 Board Certified Radiologist. This report was verified electronically.
--- NOTE | 2018-01-21 16:57 | HHI.PR ---
Subjective Subjective Notes PTD: 1 1100: IN oR 1400: In OR 1645: IN OR Objective Vitals/I&O Vital Signs Date Time Temp Pulse Resp B/P (MAP) Pulse Ox O2 Delivery O2 Flow Rate FiO2 01/21/18 15:00 16 01/21/18 13:30 84 95/46 (62) 99 Nasal Cannula 3 01/21/18 13:15 98.0 01/20/18 14:44 21 Labs Laboratory Tests Test 01/21/18 03:17 White Blood Count 6.2 Red Blood Count 3.09 Hemoglobin 9.1 Hematocrit 26.4 Mean Corpuscular Volume 85.4 Mean Corpuscular Hemoglobin 29.6 Mean Corpuscular Hemoglobin Concent 34.7 Red Cell Distribution Width 16.6 Platelet Count 180 Mean Platelet Volume 7.8 Neutrophils (%) (Auto) 82.6 Lymphocytes (%) (Auto) 8.0 Monocytes (%) (Auto) 7.7 Eosinophils (%) (Auto) 1.4 Basophils (%) (Auto) 0.3 Neutrophils # (Auto) 5.1 Lymphocytes # (Auto) 0.5 Monocytes # (Auto) 0.5 Eosinophils # (Auto) 0.1 Basophils # (Auto) 0.0 CBC Comment DIFF FINAL Differential Comment Blood Urea Nitrogen 21 Creatinine 1.00 Random Glucose 103 Calcium Level 8.0 Sodium Level 140 Potassium Level 4.3 Chloride Level 105 Carbon Dioxide Level 26.3 Anion Gap 9 Estimat Glomerular Filtration Rate 48 25-Hydroxy Vitamin D Total 27.9 Radiology Last 72 hours Impressions Ankle X-Ray 01/21/18 0000 Signed Impressions: Service Date/Time: Sunday, January 21, 2018 12:37 - CONCLUSION: Postsurgical changes. Anton Madison MD Pelvis X-Ray 01/20/18 1446 Signed Impressions: Service Date/Time: Saturday, January 20, 2018 14:36 - CONCLUSION: 1. No acute fracture identified. Osteopenia. Shant Torres MD Head CT 01/20/18 1446 Signed Impressions: Service Date/Time: Saturday, January 20, 2018 14:56 - CONCLUSION: 1. No acute intracranial abnormalities. Chronic white matter ischemic changes. Shant Torres MD Chest X-Ray 01/20/18 1446 Signed Impressions: Service Date/Time: Saturday, January 20, 2018 14:36 - CONCLUSION: 1. Mild basilar airspace disease. No significant effusion. Shant Torres MD Tibia/Fibula X-Ray 01/20/18 0000 Signed Impressions: Service Date/Time: Saturday, January 20, 2018 14:36 - CONCLUSION: 1. Medial and lateral malleolar fractures. Osteopenia. Previous resection of the distal segment of fibula. Shant Torres MD Lower Extremity Ultrasound 01/20/18 0000 Signed Impressions: Service Date/Time: Saturday, January 20, 2018 18:54 - CONCLUSION: 1. Negative for deep venous thrombosis. Satinder López MD Lower Extremity CT 01/20/18 0000 Signed Impressions: Service Date/Time: Saturday, January 20, 2018 15:01 - CONCLUSION: 1. Mildly displaced trimalleolar fracture with soft tissue laceration medially and air within the soft tissues around the ankle. Diffuse osteopenia. Shant Torres MD Carotid Artery Ultrasound 01/20/18 0000 Signed Impressions: Service Date/Time: Saturday, January 20, 2018 17:29 - CONCLUSION: Normal hemodynamic profile both carotids. Satinder López MD Narrative Exam IN OR A/P Problem List: (1) Open left ankle fracture ICD Codes: S82.892B - Other fracture of left lower leg, initial encounter for open fracture type I or II Status: Acute (2) Depression ICD Codes: F32.9 - Major depressive disorder, single episode, unspecified Status: Chronic (3) Multiple sclerosis ICD Codes: G35 - Multiple sclerosis Status: Chronic (4) Vitamin D deficiency ICD Codes: E55.9 - Vitamin D deficiency, unspecified Status: Chronic (5) Chronic pain ICD Codes: G89.29 - Other chronic pain Status: Chronic Assessment and Plan DOUGLAS: This is a 72-year-old female who fell from a standing position. She was walking with her walker and lost her balance and fell. No LOC. INJURIES: Open LEFT trimalleolar fx' Procedures: 01/21: To OR with orthopedics. Consults: Orthopedics. Hospitalists. Case management. Diet: NPO for surgery. Pulmonary: Encourage good pulmonary toileting. IS at bedside and pt encouraged to use. Rationale for use explained to patient, and verbalized understanding. PAIN Management: Oxycodone 10 mg 6h (SChed) Ofirmev x 1 day, Dilaudid 0.5mg q4h. Neurontin 300 mg TID. VALIUM 2 mg BID PRN. Sleep: Trazadone 100 mg HS. Activity: BR. PT and OT ordered. (WBS?) GI prophylaxis: Pepcid 20 mg BID po Bowel regimen: Colace and MOM. DVT prophylaxis: Mechanical VTE with SCDs. Chemical management TBD post OR. DC Planning: Case management consulted for assistance with final discharge disposition. Emotional support provided to patient and family at bedside and plan of care discussed. Discussed with RN at bedside. Discussed pt condition and plan of care with collaborating trauma surgeon. Patient is hemodynamically stable and being managed on the med/surg floor. The trauma team will round each day, and evaluate plan of care on a daily basis. Attending Statement The exam, history, and the medical decision-making described in the above note were completed with the assistance of the mid-level provider. I reviewed and agree with the findings presented. I attest that I had a [id number] encounter with the patient on the same day, and personally performed and documented my assessment and findings in the medical record. patient s/p fall, open ankle fracture, stable condition pain controlled no new issues for OR today with orthopedics Problem Qualifiers (1) Open left ankle fracture: Qualified Codes: S82.892B - Other fracture of left lower leg, initial encounter for open fracture type I or II Tiny Yang Jan 21, 2018 16:56 Donny Perkins MD Jan 21, 2018 23:59
[2018-01-21] MEDS: CALCIUM/VITAMIN D 250 MG/125 U TAB PO SCH (18:03)
--- NOTE | 2018-01-21 18:16 | EKG ---
Date Performed: 01/20/2018 Time Performed: 18:25:08 PTAGE: 89 years EKG: Sinus rhythm NONSPECIFIC T-WAVE ABNORMALITY BORDERLINE ECG NO PREVIOUS TRACING DOCTOR: Jo Ann Burns Interpretating Date/Time 01/21/2018 18:12:33
[2018-01-21 18:20] VITALS: BP 105/55; PULSE 73; RESP 18; TEMP 97.6; O2SAT 92
[2018-01-21] MEDS ORDERED: GENTAMICIN 80 MG PREMIX 100 ML IV SCH (20:00)
[2018-01-21] MEDS: traZODone HCL 100 MG TAB PO SCH (20:31)
[2018-01-21] MEDS: GENTAMICIN INJ 80 MG in SODIUM CHLORIDE 0.9% INJ 100 ML IV SCH (20:36)
[2018-01-21 20:39] VITALS: BP 105/56; PULSE 82; RESP 17; TEMP 97.8; O2SAT 93
[2018-01-21] MEDS: CEFUROXIME AXETIL 250 MG TAB PO SCH (21:55)
[2018-01-21] MEDS ORDERED: TEMAZEPAM 15 MG CAP PO ONE (23:45)
[2018-01-22] VITALS (7 sets, daily range): BP systolic 94–108; BP diastolic 47–52; PULSE 70–97; RESP 16–18; TEMP 96.6–98.1; O2SAT 96–99
[2018-01-22] MEDS: DIAZEPAM 10 MG TAB PO PRN (03:50)
[2018-01-22] MEDS: GENTAMICIN INJ 80 MG in SODIUM CHLORIDE 0.9% INJ 100 ML IV SCH ×3 (04:00→19:51)
[2018-01-22 04:49] LABS: AUTOMATED NEUTROPHIL # 6.3 TH/MM3 (1.8-7.7); BASOPHIL % 0.3 % (0.0-2.0); EOSINOPHIL # 0.1 TH/MM3 (0-0.4); EOSINOPHIL % 1.6 % (0.0-4.0); HEMATOCRIT 22.6 % (35.0-46.0); HEMOGLOBIN 7.8 GM/DL (11.6-15.3); LYMPHOCYTE # 0.5 TH/MM3 (1.0-4.8); MEAN CELL VOLUME 85.9 FL (80.0-100.0); MEAN CORPUSCULAR HEMOGLOBIN 29.7 PG (27.0-34.0); MEAN CORPUSCULAR HGB CONC 34.5 % (32.0-36.0); MEAN PLATELET VOLUME 7.9 FL (7.0-11.0); MONO % 4.7 % (0.0-8.0); MONOCYTE # 0.3 TH/MM3 (0-0.9); NEUT % 86.4 % (16.0-70.0); PLATELET COUNT 156 TH/MM3 (150-450); RED BLOOD COUNT 2.63 MIL/MM3 (4.00-5.30); RED CELL DISTRIBUTION WIDTH 16.3 % (11.6-17.2); WHITE BLOOD COUNT 7.3 TH/MM3 (4.0-11.0)
[2018-01-22 05:05] LABS: BICARBONATE 28.4 MEQ/L (21.0-32.0); CALCIUM 7.7 MG/DL (8.5-10.1); CREATININE 0.98 MG/DL (0.50-1.00)
[2018-01-22] MEDS ORDERED: THYROID 15 MG TAB PO SCH (06:00)
[2018-01-22] MEDS: ceFAZolin 2 GM PREMIX 50 ML IV SCH ×3 (06:16→22:45)
[2018-01-22] MEDS: KETOROLAC TROMETHAMINE 30 MG/ML (IVP) VIAL IVP SCH (06:17)
[2018-01-22] MEDS ORDERED: WALKER WHEELS/F1 MIS (07:52)
[2018-01-22] MEDS: LACTATED RINGER'S 1000 ML INJ 1,000 ML IV SCH ×4 (08:03→19:39)
[2018-01-22] MEDS: buPROPion HCL 150 MG SUSTAINED RELEASE TAB PO SCH ×3 (09:00→19:50)
[2018-01-22] MEDS: GABAPENTIN 300 MG CAP PO SCH ×3 (09:00→17:17)
[2018-01-22] MEDS: FLUCONAZOLE 200 MG TAB PO SCH (09:00)
--- NOTE | 2018-01-22 09:25 | HHI.PR ---
Subjective Remarks Follow up for open left medial and lateral malleolar fractures; MS, chronic UTI. The patient reports feeling "ok" today. She states her pain is fairly well under control, just feels weak. She claims she hasn't had a BM in 2 weeks. Denies any specific abdominal pain. Denies any nausea/vomiting. She is small amounts of oral intake but states she has diminished appetite. Denies any fevers /chills. Denies any chest pain, shortness of breath, or any other medical complaints at this time. Objective Vitals Vital Signs Date Time Temp Pulse Resp B/P (MAP) Pulse Ox O2 Delivery O2 Flow Rate FiO2 01/22/18 09:23 97 Nasal Cannula 2.00 01/22/18 07:50 96.6 97 17 104/47 (66) 96 01/22/18 03:37 96.9 74 18 101/52 (68) 96 01/22/18 00:31 97.2 70 18 94/51 (65) 98 01/21/18 20:39 97.8 82 17 105/56 (72) 93 01/21/18 18:20 97.6 73 18 105/55 (72) 92 01/21/18 17:15 97.6 72 16 95/52 (66) 95 Room Air 01/21/18 17:00 70 16 91/54 (66) 94 Room Air 01/21/18 16:00 71 16 93/52 (66) 94 Room Air 01/21/18 15:00 74 16 99/51 (67) 100 Nasal Cannula 2 01/21/18 15:00 16 01/21/18 14:30 77 16 101/52 (68) 99 Nasal Cannula 2 01/21/18 14:15 78 15 102/53 (69) 98 Nasal Cannula 2 01/21/18 14:00 97.8 79 15 100/52 (68) 97 Nasal Cannula 2 01/21/18 13:53 15 01/21/18 13:45 80 15 101/50 (67) 100 Nasal Cannula 3 01/21/18 13:30 84 15 95/46 (62) 99 Nasal Cannula 3 01/21/18 13:15 98.0 91 20 109/49 (69) 98 Nasal Cannula 3 I/O 01/21/18 01/21/18 01/21/18 01/22/18 01/22/1813/18 07:00 15:00 23:00 07:00 15:00 23:00 Intake Total 711 ml 600 ml 810 ml 340 ml 1468 ml Output Total 550 ml 580 ml 1200 ml 600 ml Balance 161 ml 20 ml -390 ml -260 ml 1468 ml Intake Oral 360 ml 240 ml IV Total 711 ml 100 ml 450 ml 100 ml 1468 ml Other 500 ml Output Urine Total 550 ml 550 ml 1200 ml 600 ml Estimated Blood Loss 30 ml # Bowel Movements 0 0 Result Diagram: 01/22/18 0340 01/22/18 0340 Imaging Last Impressions Ankle X-Ray 01/21/18 0000 Signed Impressions: Service Date/Time: Sunday, January 21, 2018 12:37 - CONCLUSION: Postsurgical changes. Anton Madison MD Pelvis X-Ray 01/20/18 1446 Signed Impressions: Service Date/Time: Saturday, January 20, 2018 14:36 - CONCLUSION: 1. No acute fracture identified. Osteopenia. Shant Torres MD Head CT 01/20/18 1446 Signed Impressions: Service Date/Time: Saturday, January 20, 2018 14:56 - CONCLUSION: 1. No acute intracranial abnormalities. Chronic white matter ischemic changes. Shant Torres MD Chest X-Ray 01/20/18 1446 Signed Impressions: Service Date/Time: Saturday, January 20, 2018 14:36 - CONCLUSION: 1. Mild basilar airspace disease. No significant effusion. Shant Torres MD Tibia/Fibula X-Ray 01/20/18 0000 Signed Impressions: Service Date/Time: Saturday, January 20, 2018 14:36 - CONCLUSION: 1. Medial and lateral malleolar fractures. Osteopenia. Previous resection of the distal segment of fibula. Shant Torres MD Lower Extremity Ultrasound 01/20/18 0000 Signed Impressions: Service Date/Time: Saturday, January 20, 2018 18:54 - CONCLUSION: 1. Negative for deep venous thrombosis. Satinder López MD Lower Extremity CT 01/20/18 0000 Signed Impressions: Service Date/Time: Saturday, January 20, 2018 15:01 - CONCLUSION: 1. Mildly displaced trimalleolar fracture with soft tissue laceration medially and air within the soft tissues around the ankle. Diffuse osteopenia. Shant Torres MD Carotid Artery Ultrasound 01/20/18 0000 Signed Impressions: Service Date/Time: Saturday, January 20, 2018 17:29 - CONCLUSION: Normal hemodynamic profile both carotids. Satinder López MD Objective Remarks GENERAL: Well-nourished, well-developed elderly female patient in NAD. SKIN: Warm and dry. No rash. HEENT: Normocephalic. Atraumatic. Pupils equal and round. Mucous membranes pink and moist. CARDIOVASCULAR: Regular rate and rhythm. S1, S2 noted. No murmur appreciated. RESPIRATORY: No accessory muscle use. Clear to auscultation. Breath sounds equal bilaterally. GASTROINTESTINAL: Abdomen soft, non-tender, nondistended. Normoactive bowel sounds x4. MUSCULOSKELETAL: No obvious deformities. LLE in surgical splint. Distal toes warm, sensation intact with brisk capillary refill, unable to palpate pulses secondary to surgical dressing. NEUROLOGICAL: Awake and alert. No obvious cranial nerve deficits. Motor grossly within normal limits. Moving all extremities spontaneously. Normal speech. PSYCHIATRIC: Appropriate mood and affect; insight and judgment normal. Procedures 01/21/18 - Irrigation and debridement of open left ankle fracture, open reduction internal fixation left ankle trimalleolar fracture by Dr. Knowles Medications and IVs Current Medications Medications (Trade) Dose Ordered Sig/Jl Route Start Time Stop Time Status Last Admin Lactated Ringer's 1,000 ml @ 42 mls/hr [id number] IV 01/20/18 16:00 01/20/18 17:59 (Zofran Inj) 4 mg Q6H PRN IV PUSH 01/20/18 16:00 Miscellaneous Information 1 Q361D XX 01/20/18 16:00 (Pepcid) 20 mg BID PO 01/20/18 21:00 01/22/18 09:34 (Milk Of Magnesia Liq) 30 ml BID PO 01/20/18 21:00 01/22/18 09:32 (Vitamin D3) 5,000 units DAILY PO 01/21/18 09:00 01/22/18 09:34 (Valium) 2 mg BID PRN PO 01/21/18 07:45 (PROzac) 60 mg BID PO 01/21/18 09:00 01/22/18 09:34 (Neurontin) 300 mg TID PO 01/21/18 09:00 (Roxicodone) 10 mg Q6HR PO 01/21/18 12:00 01/22/18 06:17 (Miralax) 17 gm BID PO 01/21/18 09:00 01/22/18 09:32 (Beata-Colace) 1 tab BID PO 01/21/18 09:00 01/22/18 09:33 (Forrest Thyroid) 15 mg DAILY@0600 PO 01/22/18 06:00 01/22/18 06:17 (Desyrel) 300 mg HS PO 01/21/18 21:00 01/21/18 20:31 Patient Own Medication PT OWN MED: (Dimet... DAILY PO 01/21/18 09:00 Future Hold (Detrol La) 2 mg DAILY PO 01/21/18 11:00 01/22/18 09:53 (Dilaudid Pf Inj) 0.5 mg Q4H PRN IV PUSH 01/21/18 08:15 01/21/18 21:58 (Wellbutrin Sr) 150 mg DAILY PO 01/21/18 09:00 01/22/18 09:00 (Lioresal) 20 mg TID PO 01/21/18 13:00 01/22/18 09:53 (Wellbutrin Sr) 150 mg BID PO 01/21/18 21:00 (Ceftin) 250 mg BID PO 01/21/18 21:00 01/22/18 09:53 (Valium) 10 mg BID PRN PO 01/21/18 11:15 01/22/18 03:50 (Diflucan) 200 mg DAILY PO 01/22/18 09:00 (Protonix) 20 mg DAILY PO 01/22/18 09:00 01/22/18 09:33 (Forrest Thyroid) 90 mg DAILY PO 01/22/18 09:00 01/22/18 09:53 Lactated Ringer's 1,000 ml @ 100 mls/hr Q10H IV 01/21/18 12:03 01/21/18 21:59 (Lovenox Inj) 30 mg Q12H SQ 01/22/18 12:00 Cefazolin Sodium/ Dextrose 50 ml @ 100 mls/hr Q8H IV 01/21/18 14:00 01/23/18 06:29 01/22/18 06:16 (Oscal-D 250-125) 250 mg TID PO 01/21/18 13:00 01/22/18 09:34 (Benadryl) 25 mg Q6H PRN PO 01/21/18 12:15 Gentamicin Sulfate 80 mg/ Sodium Chloride 102 ml @ 204 mls/hr Q8H IV 01/21/18 20:00 01/23/18 12:29 01/22/18 04:00 A/P Problem List: (1) Multiple sclerosis ICD Code: G35 - Multiple sclerosis Status: Chronic (2) Open left ankle fracture ICD Code: S82.892B - Other fracture of left lower leg, initial encounter for open fracture type I or II Status: Acute Assessment and Plan 72 year old female admitted as a trauma alert after falling at home with open left ankle fracture. Patient admitted to traumas service with [facility] consulted to assist with ongoing medical management of patient. Open left medial and lateral malleolar fractures: injury occurred as patient's legs just "gave out" - Patient seen and evaluated by trauma services, admit to medical surgical floor - Head CT with no acute intracranial abnormalities - Pelvis x-ray with no acute fractures - Vitamin D level low, started on cholecalciferol - Orthopedics consulted, s/p ORIF on 01/21 - Continue on IV Ancef and IV Gentamicin per ortho - Pain control with home oxycodone and IV Dilaudid prn Right calf pain - No visible injury noted although does endorse pain with calf palpation, full range of motion. - U/S negative for DVT MS - Continuing home Baclofen and Neurontin - Following with neuro as outpatient Chronic UTI - U/A with culture done Sunday but not in system - Check U/A - CBC reviewed with no leukocytosis, afebrile on presentation - Continue Cefuroxime which had been started a few days ago as an outpatient Constipation: patient claims no BM in 14days, however abdomen non distended, no N/V, patient tolerating oral intake. Takes Miralax bid at home. -Continue miralax bid, MOM bid -Give lactulose x1 now -Monitor for BM Insomnia: patient reports she rotates ambien and temazepam every other day -will give ambien tonight, patient will likely request to have temazepam tomorrow DVT prophylaxis: Lovenox sq per ortho Problem Qualifiers (1) Open left ankle fracture: Qualified Codes: S82.892B - Other fracture of left lower leg, initial encounter for open fracture type I or II Mary Schwab PA-C Jan 22, 2018 9:25 am
[2018-01-22] MEDS: MAGNESIUM HYDROXIDE SUSP 30 ML CUP PO SCH ×2 (09:32→19:48)
[2018-01-22] MEDS: POLYETHYLENE GLYCOL 17 GM PKG PO SCH ×2 (09:32→19:51)
[2018-01-22] MEDS: PANTOPRAZOLE SOD 20 MG DELAYED RELEASE TAB PO SCH (09:33)
[2018-01-22] MEDS: DOCUSATE SODIUM 50 MG/SENNA 8.6 MG TAB PO SCH ×2 (09:33→19:48)
[2018-01-22] MEDS: FLUoxetine HCL 20 MG CAP PO SCH ×2 (09:34→19:49)
[2018-01-22] MEDS: CHOLECALCIFEROL (VIT D3) 1000 UNIT TAB PO SCH (09:34)
[2018-01-22] MEDS: CALCIUM/VITAMIN D 250 MG/125 U TAB PO SCH ×3 (09:34→17:17)
[2018-01-22] MEDS: FAMOTIDINE 20 MG TAB PO SCH ×2 (09:34→19:50)
[2018-01-22] MEDS: BACLOFEN 20 MG TAB PO SCH ×3 (09:53→17:17)
[2018-01-22] MEDS: CEFUROXIME AXETIL 250 MG TAB PO SCH ×2 (09:53→19:50)
[2018-01-22] MEDS: THYROID 30 MG TAB PO SCH (09:53)
[2018-01-22] MEDS: TOLTERODINE TARTRATE 2 MG CAP LA PO SCH (09:53)
[2018-01-22] MEDS ORDERED: LACTULOSE SYRUP 20 GM/30 ML CUP PO ONE (10:15)
[2018-01-22] MEDS ORDERED: LACTULOSE SYRUP 20 GM/30 ML CUP PO PRN (10:15)
--- NOTE | 2018-01-22 12:01 | HHI.PR ---
Subjective Subjective Notes PTD: 2 Patient lying in bed. No distress noted. Patient asking many questions about discharge planning. "I heard a terrible joke that I was going home on the or " at bedside and requesting patient to be put on new multiple sclerosis drug. Objective Vitals/I&O Vital Signs Date Time Temp Pulse Resp B/P (MAP) Pulse Ox O2 Delivery O2 Flow Rate FiO2 01/22/18 09:23 97 Nasal Cannula 2.00 01/22/18 07:50 96.6 97 17 104/47 (66) 01/20/18 14:44 21 Labs Laboratory Tests Test 01/21/18 22:35 01/22/18 03:40 Lab Scanned Report Lab Reports - Other White Blood Count 7.3 Red Blood Count 2.63 Hemoglobin 7.8 Hematocrit 22.6 Mean Corpuscular Volume 85.9 Mean Corpuscular Hemoglobin 29.7 Mean Corpuscular Hemoglobin Concent 34.5 Red Cell Distribution Width 16.3 Platelet Count 156 Mean Platelet Volume 7.9 Neutrophils (%) (Auto) 86.4 Lymphocytes (%) (Auto) 7.0 Monocytes (%) (Auto) 4.7 Eosinophils (%) (Auto) 1.6 Basophils (%) (Auto) 0.3 Neutrophils # (Auto) 6.3 Lymphocytes # (Auto) 0.5 Monocytes # (Auto) 0.3 Eosinophils # (Auto) 0.1 Basophils # (Auto) 0.0 CBC Comment DIFF FINAL Differential Comment Blood Urea Nitrogen 20 Creatinine 0.98 Random Glucose 101 Calcium Level 7.7 Sodium Level 140 Potassium Level 4.8 Chloride Level 106 Carbon Dioxide Level 28.4 Anion Gap 6 Estimat Glomerular Filtration Rate 56 Radiology Last 72 hours Impressions Ankle X-Ray 01/21/18 0000 Signed Impressions: Service Date/Time: Sunday, January 21, 2018 12:37 - CONCLUSION: Postsurgical changes. Anton Madison MD Pelvis X-Ray 01/20/18 1446 Signed Impressions: Service Date/Time: Saturday, January 20, 2018 14:36 - CONCLUSION: 1. No acute fracture identified. Osteopenia. Shant Torres MD Head CT 01/20/18 1446 Signed Impressions: Service Date/Time: Saturday, January 20, 2018 14:56 - CONCLUSION: 1. No acute intracranial abnormalities. Chronic white matter ischemic changes. Shant Torres MD Chest X-Ray 01/20/18 1446 Signed Impressions: Service Date/Time: Saturday, January 20, 2018 14:36 - CONCLUSION: 1. Mild basilar airspace disease. No significant effusion. Shant Torres MD Tibia/Fibula X-Ray 01/20/18 0000 Signed Impressions: Service Date/Time: Saturday, January 20, 2018 14:36 - CONCLUSION: 1. Medial and lateral malleolar fractures. Osteopenia. Previous resection of the distal segment of fibula. Shant Torres MD Lower Extremity Ultrasound 01/20/18 0000 Signed Impressions: Service Date/Time: Saturday, January 20, 2018 18:54 - CONCLUSION: 1. Negative for deep venous thrombosis. Satinder López MD Lower Extremity CT 01/20/18 0000 Signed Impressions: Service Date/Time: Saturday, January 20, 2018 15:01 - CONCLUSION: 1. Mildly displaced trimalleolar fracture with soft tissue laceration medially and air within the soft tissues around the ankle. Diffuse osteopenia. Shant Torres MD Carotid Artery Ultrasound 01/20/18 0000 Signed Impressions: Service Date/Time: Saturday, January 20, 2018 17:29 - CONCLUSION: Normal hemodynamic profile both carotids. Satinder López MD Narrative Exam GENERAL: This is a 72-year-old female lying in bed. No distress noted. SKIN: Warm and dry. HEAD: Atraumatic. Normocephalic. EYES: PERRLA ENT: No nasal bleeding or discharge. Mucous membranes pink and moist. NECK: Trachea midline. No JVD. CARDIOVASCULAR: Regular rate and rhythm. RESPIRATORY: No accessory muscle use. Lungs are clear to auscultation. Breath sounds equal bilaterally. No distress or dyspnea. GASTROINTESTINAL: BS + x 4 quads. Abdomen soft, non-tender, nondistended. MUSCULOSKELETAL: Extremities without cyanosis, or edema. LEFT lower extremity splint in place and wrapped in Tate bandage. Elevated on numerous pillows . + peripheral pulses x 4 extremities. Warm with good capillary refill and sensation. MAEW. NEUROLOGICAL: Awake and alert. Normal speech and pattern. A/P Problem List: (1) Open left ankle fracture ICD Codes: S82.892B - Other fracture of left lower leg, initial encounter for open fracture type I or II Status: Acute (2) Depression ICD Codes: F32.9 - Major depressive disorder, single episode, unspecified Status: Chronic (3) Multiple sclerosis ICD Codes: G35 - Multiple sclerosis Status: Chronic (4) Vitamin D deficiency ICD Codes: E55.9 - Vitamin D deficiency, unspecified Status: Chronic (5) Chronic pain ICD Codes: G89.29 - Other chronic pain Status: Chronic Assessment and Plan KAKE: This is a 72-year-old female who fell from a standing position. She was walking with her walker and lost her balance and fell. No LOC. INJURIES: Open LEFT trimalleolar fx' Procedures: 01/21: To OR with orthopedics. Consults: Orthopedics. Neurology. Hospitalists. Case management. Consult neurology. is asking for patient to be placed on new muscular sclerosis medication Diet: Regular ADA diet ordered. Encourage good by mouth intake. Pulmonary: Encourage good pulmonary toileting. IS at bedside and pt encouraged to use. Rationale for use explained to patient, and verbalized understanding. Patient had a syncope workup. EKG normal. Carotid ultrasound normal. ( According to patient's , she has been getting progressively weaker and more unstable with her balance. He feels that is attributed to her multiple sclerosis.) PAIN Management: Oxycodone 10 mg 6h (Sched) . Dilaudid 0.5mg q4h. Neurontin 300 mg TID. VALIUM 2 mg BID PRN. Sleep: Trazodone 100 mg HS. Activity: OOB. PT and OT ordered. (NWB LLE) GI prophylaxis: Pepcid 20 mg BID po Bowel regimen: Colace and MOM. DVT prophylaxis: Mechanical VTE with SCDs. Chemical management Lovenox 30 mg BID. DC Planning: Case management consulted for assistance with final discharge disposition. Emotional support provided to patient and family at bedside and plan of care discussed. Discussed with RN at bedside. Discussed pt condition and plan of care with collaborating trauma surgeon. Patient is hemodynamically stable and being managed on the med/surg floor. At this time trauma surgery will sign off, and transfer attending care to the hospitalist. Orthopedic surgery will continue to follow patient and manage her open left trimalleolar fracture. Please feel free to reconsult trauma if needed or call with any questions or needs. Remarks Patient seen and examined the nurse practitioner, from general trauma standpoint she is stable, will obtain a neurology consult secondary to patient' s worsening multiple sclerosis disease, DVT prophylaxis Problem Qualifiers (1) Open left ankle fracture: Qualified Codes: S82.892B - Other fracture of left lower leg, initial encounter for open fracture type I or II (2) Chronic pain: Qualified Codes: G89.4 - Chronic pain syndrome Tiny Yang Jan 22, 2018 12:01 Anna Dwyer MD Jan 22, 2018 17:23
[2018-01-22] MEDS: ENOXAPARIN SODIUM 30 MG/0.3 ML SYRINGE SQ SCH (12:39)
[2018-01-22 18:28] LABS: BACTERIA, URINE OCC /hpf; BILIRUBIN, URINE NEG (NEG); BLOOD, URINE SMALL (NEG); GLUCOSE,URINE NEG (NEG); KETONE, URINE NEG (NEG); NITRITE,URINE NEG (NEG); SQUAMOUS EPITHELIAL CELL URINE <1 /hpf (0-5); URINE COLOR YELLOW (YELLW/STRAW); URINE LEUKOCYTE ESTERASE LARGE (NEG)
[2018-01-22] MEDS: traZODone HCL 100 MG TAB PO SCH (19:50)
[2018-01-22] MEDS ORDERED: ZOLPIDEM TARTRATE 10 MG TAB PO SCH (21:00)
[2018-01-22] MEDS: HYDROmorphone HCL PF 2 MG/ML VIAL IV PUSH PRN (22:45)
[2018-01-22] MEDS ORDERED: MAGNESIUM HYDROXIDE SUSP 30 ML CUP PO PRN (23:15)
[2018-01-22] MEDS ORDERED: BISACODYL 10 MG SUPP RECTAL PRN (23:15)
[2018-01-23] VITALS: BP 110/49; PULSE 98; RESP 18; TEMP 96.8; O2SAT 99
[2018-01-23] MEDS: ENOXAPARIN SODIUM 30 MG/0.3 ML SYRINGE SQ SCH ×2 (01:01→11:39)
[2018-01-23] MEDS: GENTAMICIN INJ 80 MG in SODIUM CHLORIDE 0.9% INJ 100 ML IV SCH ×2 (03:24→12:03)
[2018-01-23] MEDS: ceFAZolin 2 GM PREMIX 50 ML IV SCH (06:18)
--- NOTE | 2018-01-23 06:42 | PD.ORT.PN ---
Subjective Subjective Remarks POD 2 s/p I&D with ORIF of left open ankle fxs doing well. pain controlled. no changes Objective Vitals Vital Signs Date Time Temp Pulse Resp B/P (MAP) Pulse Ox O2 Delivery O2 Flow Rate FiO2 01/23/18 00:00 96.8 98 18 110/49 (69) 99 01/22/18 20:00 98.1 87 16 102/48 (66) 99 01/22/18 16:00 97.6 76 17 108/52 (70) 96 01/22/18 12:00 96.8 75 17 107/52 (70) 99 01/22/18 09:23 97 Nasal Cannula 2.00 01/22/18 07:50 96.6 97 17 104/47 (66) 96 I/O 01/22/18 01/22/18 01/22/18 01/23/18 01/23/18 01/23/18 07:00 15:00 23:00 07:00 15:00 23:00 Intake Total 340 ml 1848 ml 240 ml 0 ml Output Total 600 ml 378 ml 1100 ml 1200 ml Balance -260 ml 1470 ml -860 ml -1200 ml Intake Oral 240 ml 380 ml 240 ml 0 ml IV Total 100 ml 1468 ml Output Urine Total 600 ml 378 ml 1100 ml 1200 ml # Bowel Movements 0 0 0 0 Result Diagram: 01/22/18 0340 01/22/18 034 Imaging Last 72 hours Impressions Pelvis X-Ray 01/20/181445 Signed Impressions: Service Date/Time: Saturday, January 20, 2018 14:36 - CONCLUSION: 1. No acute fracture identified. Osteopenia. Shant Torres MD Head CT 01/20/181445 Signed Impressions: Service Date/Time: Saturday, January 20, 2018 14:56 - CONCLUSION: 1. No acute intracranial abnormalities. Chronic white matter ischemic changes. Shant Torres MD Chest X-Ray 01/20/181445 Signed Impressions: Service Date/Time: Saturday, January 20, 2018 14:36 - CONCLUSION: 1. Mild basilar airspace disease. No significant effusion. Shant Torres MD Tibia/Fibula X-Ray 01/20/18 0000 Signed Impressions: Service Date/Time: Saturday, January 20, 2018 14:36 - CONCLUSION: 1. Medial and lateral malleolar fractures. Osteopenia. Previous resection of the distal segment of fibula. Shant Torres MD Lower Extremity Ultrasound 01/20/18 0000 Signed Impressions: Service Date/Time: Saturday, January 20, 2018 18:54 - CONCLUSION: 1. Negative for deep venous thrombosis. Satinder López MD Lower Extremity CT 01/20/18 0000 Signed Impressions: Service Date/Time: Saturday, January 20, 2018 15:01 - CONCLUSION: 1. Mildly displaced trimalleolar fracture with soft tissue laceration medially and air within the soft tissues around the ankle. Diffuse osteopenia. Shant Torres MD Carotid Artery Ultrasound 01/20/18 0000 Signed Impressions: Service Date/Time: Saturday, January 20, 2018 17:29 - CONCLUSION: Normal hemodynamic profile both carotids. Satinder López MD Last 24 hours Impressions Pelvis X-Ray 01/20/18 1446 Signed Impressions: Service Date/Time: Saturday, January 20, 2018 14:36 - CONCLUSION: 1. No acute fracture identified. Osteopenia. Shant Torres MD Head CT 01/20/18 1446 Signed Impressions: Service Date/Time: Saturday, January 20, 2018 14:56 - CONCLUSION: 1. No acute intracranial abnormalities. Chronic white matter ischemic changes. Shant Torres MD Chest X-Ray 01/20/18 1446 Signed Impressions: Service Date/Time: Saturday, January 20, 2018 14:36 - CONCLUSION: 1. Mild basilar airspace disease. No significant effusion. Shant Torres MD Objective Remarks LLE: +short leg splint. intact. nvi Assessment & Plan Assessment and Plan 1) Open laceration and trimalleolar ankle fracture s/p ORIF - POD 2 -NWB -maintain splint at all times -elevate -ortho cleared for DC to rehab -f/u with Jay or PA in 2 weeks Santino Navarro/[employer] PA Jan 23, 2018 06:42
[2018-01-23] MEDS ORDERED: HYDR-3580 PO (06:43)
[2018-01-23] MEDS ORDERED: VITA2000 PO (06:49)
[2018-01-23] MEDS ORDERED: CALCTAB19 PO (06:49)
[2018-01-23] MEDS ORDERED: VITA500012 PO (06:49)
[2018-01-23 06:54] LABS: AUTOMATED NEUTROPHIL # 5.6 TH/MM3 (1.8-7.7); BASOPHIL % 0.4 % (0.0-2.0); EOSINOPHIL # 0.3 TH/MM3 (0-0.4); EOSINOPHIL % 3.7 % (0.0-4.0); HEMATOCRIT 24.6 % (35.0-46.0); HEMOGLOBIN 8.5 GM/DL (11.6-15.3); LYMPH % 10.8 % (9.0-44.0); LYMPHOCYTE # 0.8 TH/MM3 (1.0-4.8); MEAN CELL VOLUME 84.3 FL (80.0-100.0); MEAN CORPUSCULAR HEMOGLOBIN 29.1 PG (27.0-34.0); MEAN CORPUSCULAR HGB CONC 34.5 % (32.0-36.0); MEAN PLATELET VOLUME 7.7 FL (7.0-11.0); MONO % 5.4 % (0.0-8.0); MONOCYTE # 0.4 TH/MM3 (0-0.9); NEUT % 79.7 % (16.0-70.0); PLATELET COUNT 193 TH/MM3 (150-450); RED BLOOD COUNT 2.92 MIL/MM3 (4.00-5.30)
--- NOTE | 2018-01-23 07:09 | MB ---
cc: Michoacano Teague MD DATE OF CONSULT: 01/23/2018 HISTORY OF PRESENT ILLNESS: She is a 72-year-old woman seen in neurological consultation in regards to history of multiple sclerosis. It appears the patient has had some falls. There is apparent underlying dementia. She fractured the left malleolus and had open surgery after a fall. She has been treated for a urinary tract infection. There is a history of MS. Unclear as to how long she was treated. The patient may live in [facility]. She reports that Dr. Olmstead, neurologist from [place], follows her. There is a history of depression. MEDICATIONS: Include Wellbutrin, Desyrel, and she is now on gentamicin, Ceftin, thyroid replacement, fluconazole, Protonix, zolpidem, oxycodone, Valium, gabapentin. NEUROLOGICAL EXAMINATION: The patient was awake, alert. She was seen early in the morning. Spoke to the RN. She is partially oriented. She knew her name and age but was confused as to the place and the whereabouts; she thought she was in [place] and described that she is here for skiing. She refers to [place]. At some point, she was more appropriate mentally, as she discussed the name of neurologist Dr. Olmstead in the [facility]. Ocular movements were full, as were visual zimmerman. There was no facial weakness. Speech was clear. She was able to count fingers bilaterally. She raised the arms, and there was some tremoring, essential tremor. She had a fairly reasonable services tech bilaterally. She was able to raise both lower extremities. The left lower extremity is immobilized, but she was able to wiggle toes. The reflexes were 1+ at the elbows and right knee, difficult to elicit over right ankle and also left knee, as there is some immobilization reaching the left knee. Plantar response on the right is probably flexor. ANCILLARY DATA: Yesterday's CBC showed white count 7.3, hemoglobin 7.8, platelets 156. Basic chemistry normal. Urinalysis shows [address] brain on 01/20 showing no acute intracranial abnormality, chronic microvascular disease. ASSESSMENT: Encephalopathy/dementia. Suspect there is some chronic dementia here, thought I was not able to get any more premorbid history. She is quite disoriented, but she was cooperative. There is some psychiatric history, as she has been on psychiatric medications. Polypharmacy might be a factor. Would consider discontinuing Desyrel and reducing benzodiazepines and painkiller medications. History of multiple sclerosis: This does not seem to be an acute process. At her age, evidently we will have to consider reviewing history and consider additional imaging studies as outpatient, but suspect she is not in need of any acute multiple sclerosis treatment. She follows with neurologist Dr. Olmstead out of [place]. She should be followed as outpatient there or in our office here in the [facility] if there are any other concerns about multiple sclerosis management. She may need cognition-enhancing medications after the acute medical problems are controlled, also outpatient neurological care. Thank you for asking us to participate in her care. MD PATRICIA Torres/DANIEL , 06:47 AM , 07:08 AM
[2018-01-23 07:16] LABS: BICARBONATE 29.6 MEQ/L (21.0-32.0); CALCIUM 7.8 MG/DL (8.5-10.1); CREATININE 1.14 MG/DL (0.50-1.00)
[2018-01-23 08:00] VITALS: BP 105/46; PULSE 92; RESP 16; TEMP 98.5; O2SAT 90
[2018-01-23] MEDS: CEFUROXIME AXETIL 250 MG TAB PO SCH (08:48)
[2018-01-23] MEDS: MAGNESIUM HYDROXIDE SUSP 30 ML CUP PO SCH (08:48)
[2018-01-23] MEDS: GABAPENTIN 300 MG CAP PO SCH ×2 (08:48→11:39)
[2018-01-23] MEDS: BACLOFEN 20 MG TAB PO SCH ×2 (08:49→11:57)
[2018-01-23] MEDS: PANTOPRAZOLE SOD 20 MG DELAYED RELEASE TAB PO SCH (08:49)
[2018-01-23] MEDS: FLUCONAZOLE 200 MG TAB PO SCH (08:49)
[2018-01-23] MEDS: FLUoxetine HCL 20 MG CAP PO SCH (08:49)
[2018-01-23] MEDS: CALCIUM/VITAMIN D 250 MG/125 U TAB PO SCH ×2 (08:49→11:40)
[2018-01-23] MEDS: FAMOTIDINE 20 MG TAB PO SCH (08:50)
[2018-01-23] MEDS: DOCUSATE SODIUM 50 MG/SENNA 8.6 MG TAB PO SCH (08:50)
[2018-01-23] MEDS: THYROID 30 MG TAB PO SCH (08:50)
[2018-01-23] MEDS: buPROPion HCL 150 MG SUSTAINED RELEASE TAB PO SCH (08:51)
[2018-01-23] MEDS: CHOLECALCIFEROL (VIT D3) 1000 UNIT TAB PO SCH (08:51)
[2018-01-23] MEDS: POLYETHYLENE GLYCOL 17 GM PKG PO SCH (08:51)
--- NOTE | 2018-01-23 08:51 | HHI.PR ---
Subjective Remarks Follow up for open left medial and lateral malleolar fractures; MS, chronic UTI. The patient is awake, alert, oriented to person, place, president, year 2018, then when asked multiple times what the month is, she continuously states 2018 despite prompting. She reports continued suprapubic pain and dysuria, although does still have Waterman in place (ordered to remove Waterman). Denies fevers /chills or flank pain. She states her left leg pain is "doing ok". She states she slept very well last night after receiving ambien. She is eating well. Still claiming her last BM was 2 weeks ago. Denies any abdominal pain/nausea/ vomiting. Denies any other medical complaints at this time. Objective Vitals Vital Signs Date Time Temp Pulse Resp B/P (MAP) Pulse Ox O2 Delivery O2 Flow Rate FiO2 01/23/18 08:00 98.5 92 16 105/46 (65) 90 01/23/18 00:00 96.8 98 18 110/49 (69) 99 01/22/18 20:00 98.1 87 16 102/48 (66) 99 01/22/18 16:00 97.6 76 17 108/52 (70) 96 01/22/18 12:00 96.8 75 17 107/52 (70) 99 01/22/18 09:23 97 Nasal Cannula 2.00 I/O 01/22/18 01/22/18 01/22/18 01/23/18 01/23/18 01/23/18 07:00 15:00 23:00 07:00 15:00 23:00 Intake Total 340 ml 1848 ml 342 ml 202 ml Output Total 600 ml 378 ml 1100 ml 1200 ml Balance -260 ml 1470 ml -758 ml -998 ml Intake Oral 240 ml 380 ml 240 ml 0 ml IV Total 100 ml 1468 ml 102 ml 202 ml Output Urine Total 600 ml 378 ml 1100 ml 1200 ml # Bowel Movements 0 0 0 0 Result Diagram: 01/23/18 0610 01/23/18 0610 Imaging Last Impressions Ankle X-Ray 01/21/18 0000 Signed Impressions: Service Date/Time: Sunday, January 21, 2018 12:37 - CONCLUSION: Postsurgical changes. Anton Madison MD Pelvis X-Ray 01/20/18 1446 Signed Impressions: Service Date/Time: Saturday, January 20, 2018 14:36 - CONCLUSION: 1. No acute fracture identified. Osteopenia. Shant Torres MD Head CT 01/20/18 1446 Signed Impressions: Service Date/Time: Saturday, January 20, 2018 14:56 - CONCLUSION: 1. No acute intracranial abnormalities. Chronic white matter ischemic changes. Shant Torres MD Chest X-Ray 01/20/18 1446 Signed Impressions: Service Date/Time: Saturday, January 20, 2018 14:36 - CONCLUSION: 1. Mild basilar airspace disease. No significant effusion. Shant Torres MD Tibia/Fibula X-Ray 01/20/18 0000 Signed Impressions: Service Date/Time: Saturday, January 20, 2018 14:36 - CONCLUSION: 1. Medial and lateral malleolar fractures. Osteopenia. Previous resection of the distal segment of fibula. Shant Torres MD Lower Extremity Ultrasound 01/20/18 0000 Signed Impressions: Service Date/Time: Saturday, January 20, 2018 18:54 - CONCLUSION: 1. Negative for deep venous thrombosis. Satinder López MD Lower Extremity CT 01/20/18 0000 Signed Impressions: Service Date/Time: Saturday, January 20, 2018 15:01 - CONCLUSION: 1. Mildly displaced trimalleolar fracture with soft tissue laceration medially and air within the soft tissues around the ankle. Diffuse osteopenia. Shant Torres MD Carotid Artery Ultrasound 01/20/18 0000 Signed Impressions: Service Date/Time: Saturday, January 20, 2018 17:29 - CONCLUSION: Normal hemodynamic profile both carotids. Satinder López MD Objective Remarks GENERAL: Well-nourished, well-developed elderly female patient in [facility]. SKIN: Warm and dry. No rash. HEENT: Normocephalic. Atraumatic. Pupils equal and round. Mucous membranes pink and moist. CARDIOVASCULAR: Regular rate and rhythm. S1, S2 noted. No murmur appreciated. RESPIRATORY: No accessory muscle use. Clear to auscultation. Breath sounds equal bilaterally. GASTROINTESTINAL: Abdomen soft, non-tender, nondistended. Normoactive bowel sounds x4. MUSCULOSKELETAL: No obvious deformities. LLE in surgical splint. Distal toes warm, sensation intact with brisk capillary refill, unable to palpate pulses secondary to surgical dressing. NEUROLOGICAL: Awake and alert. No obvious cranial nerve deficits. Motor grossly within normal limits. Moving all extremities spontaneously. Normal speech. PSYCHIATRIC: Appropriate mood and affect; insight and judgment normal. Procedures 01/21/18 - Irrigation and debridement of open left ankle fracture, open reduction internal fixation left ankle trimalleolar fracture by Dr. Knowles Medications and IVs Current Medications Medications (Trade) Dose Ordered Sig/Jl Route Start Time Stop Time Status Last Admin (Zofran Inj) 4 mg Q6H PRN IV PUSH 01/20/18 16:00 Miscellaneous Information 1 Q361D XX 01/20/18 16:00 (Pepcid) 20 mg BID PO 01/20/18 21:00 01/22/18 19:50 (Milk Of Magnesia Liq) 30 ml BID PO 01/20/18 21:00 01/22/18 19:48 (Vitamin D3) 5,000 units DAILY PO 01/21/18 09:00 01/22/18 09:34 (Valium) 2 mg BID PRN PO 01/21/18 07:45 (PROzac) 60 mg BID PO 01/21/18 09:00 01/22/18 19:49 (Neurontin) 300 mg TID PO 01/21/18 09:00 (Roxicodone) 10 mg Q6HR PO 01/21/18 12:00 01/23/18 06:18 (Miralax) 17 gm BID PO 01/21/18 09:00 01/22/18 19:51 (Beata-Colace) 1 tab BID PO 01/21/18 09:00 01/22/18 19:48 (Desyrel) 300 mg HS PO 01/21/18 21:00 01/22/18 19:50 Patient Own Medication PT OWN MED: (Dimet... DAILY PO 01/21/18 09:00 Future Hold (Detrol La) 2 mg DAILY PO 01/21/18 11:00 01/22/18 09:53 (Dilaudid Pf Inj) 0.5 mg Q4H PRN IV PUSH 01/21/18 08:15 01/22/18 22:45 (Lioresal) 20 mg TID PO 01/21/18 13:00 01/22/18 17:17 (Wellbutrin Sr) 150 mg BID PO 01/21/18 21:00 (Ceftin) 250 mg BID PO 01/21/18 21:00 01/22/18 19:50 (Valium) 10 mg BID PRN PO 01/21/18 11:15 01/22/18 03:50 (Diflucan) 200 mg DAILY PO 01/22/18 09:00 (Protonix) 20 mg DAILY PO 01/22/18 09:00 01/22/18 09:33 ([place] Thyroid) 90 mg DAILY PO 01/22/18 09:00 01/22/18 09:53 Lactated Ringer's 1,000 ml @ 100 mls/hr Q10H IV 01/21/18 12:03 01/21/18 21:59 (Lovenox Inj) 30 mg Q12H SQ 01/22/18 12:00 01/23/18 01:01 (Oscal-D 250-125) 250 mg TID PO 01/21/18 13:00 01/22/18 17:17 (Benadryl) 25 mg Q6H PRN PO 01/21/18 12:15 Gentamicin Sulfate 80 mg/ Sodium Chloride 102 ml @ 204 mls/hr Q8H IV 01/21/18 20:00 01/23/18 12:29 01/23/18 03:24 (Lactulose Liq) 30 ml DAILY PRN PO 01/22/18 10:15 (Dulcolax Supp) 10 mg DAILY PRN RECTAL 01/22/18 23:15 Urinary Catheter: Yes Assessment to: Remove Date of Removal: Jan 23, 2018 A/P Problem List: (1) Multiple sclerosis ICD Code: G35 - Multiple sclerosis Status: Chronic (2) Open left ankle fracture ICD Code: S82.892B - Other fracture of left lower leg, initial encounter for open fracture type I or II Status: Acute Assessment and Plan 72 year old female admitted as a trauma alert after falling at home with open left ankle fracture. Patient admitted to traumas service with [facility] consulted to assist with ongoing medical management of patient. Open left medial and lateral malleolar fractures: injury occurred as patient's legs just "gave out" - Patient seen and evaluated by trauma services, admit to medical surgical floor - Head CT with no acute intracranial abnormalities - Pelvis x-ray with no acute fractures - Vitamin D level low, started on cholecalciferol - Orthopedics consulted, s/p ORIF on 01/21 - Received IV Ancef and IV Gentamicin per ortho - Pain control with home oxycodone and IV Dilaudid prn Right calf pain - No visible injury noted although does endorse pain with calf palpation, full range of motion. - U/S negative for DVT MS - Continuing home Baclofen and Neurontin - Neuro consulted, appreciate recommendations, does not appear to be in acute flare - Outpatient f/up with neurologist Dr. Olmstead in [place] Acute on Chronic UTI - U/A with culture done Sunday but not in system - Repeat U/A consistent with UTI - CBC reviewed with no leukocytosis, afebrile on presentation - Continue Cefuroxime which had been started a few days ago as an outpatient - Remove waterman today 01/23 - Monitor urine culture Mild Encephalopathy: patient appears slightly confused at times; suspect secondary to UTI -continue antibiotic as above - limit sedating medications - neuro checks Constipation: patient claims no BM in 14days, however abdomen nondistended, no N /V, patient tolerating oral intake. Takes Miralax bid at home. -Continue miralax bid, MOM bid -Give lactulose prn -Monitor for BM Insomnia: patient reports she rotates ambien and temazepam every other day -continue ambien for now, patient reports good response DVT prophylaxis: Lovenox sq per ortho Discharge Planning Ok to discharge to [facility] today. Will need to follow urine culture at rehab. Continue antibiotics. Problem Qualifiers (1) Open left ankle fracture: Qualified Codes: S82.892B - Other fracture of left lower leg, initial encounter for open fracture type I or II Mary Schwab PA-C Jan 23, 2018 8:51 am
[2018-01-23] MEDS: TOLTERODINE TARTRATE 2 MG CAP LA PO SCH (08:58)
[2018-01-23] MEDS: DIAZEPAM 10 MG TAB PO PRN (11:41)
[2018-01-23 11:56] VITALS: BP 109/54; PULSE 84; RESP 17; TEMP 99.2; O2SAT 94
--- NOTE | 2018-01-23 12:02 | HHI.DS ---
Discharge Summary Admission Date Jan 20, 2018 at 4:14 pm Discharge Date: Jan 23, 2018 Admitting Diagnosis open left trimalleolar fracture (1) Open left ankle fracture ICD Code: S82.892B - Other fracture of left lower leg, initial encounter for open fracture type I or II Diagnosis: Principal Status: Acute (2) Multiple sclerosis ICD Code: G35 - Multiple sclerosis Diagnosis: Secondary Status: Chronic (3) UTI (urinary tract infection) ICD Code: N39.0 - Urinary tract infection, site not specified Diagnosis: Secondary Status: Acute Procedures 01/21/18 - Irrigation and debridement of open left ankle fracture, open reduction internal fixation left ankle trimalleolar fracture by Dr. Thompson Brief History - From Admission Vira Wong female brought to ED under trauma alter after falling at home and sustaining fracture to left ankle. Patient repots a PMH of MS, chronic pain and recent treatment for UTI. is at bedside and repots patient was recently discharged from [facility]. She was treated for UTI and then discharged home. Patient continues to have dysuria along with fevers although does not repot most recent episode of fever. She follows up with her PCP and had UA done this past Sunday with pending results. Patient repots that today she was home alone and was making her way to the bathroom with the use of her walker when she fell. She repots that she does not clearly remember how she fell , but does remember protecting her head as much as possible. was out and patient reports she was on the floor for 1.5hrs before she was discovered by . She is currently having left leg pain and right leg pain. Repots left leg pain worse and describes pain as throbbing, nurse at bedside to administer Dilaudid, patient asking for Fentanyl since this is the only thing that works for her pain per patient. Nurse verifies with patient and she is agreeable after all to take Dilaudid for pain. Patient continues to repots suprapubic pain as well as dysuria, no chills, nausea, vomiting, cough, SOB or chest pain. She repots that at home she will have diarrhea and constipation alternating. She does not remember her last BM, states it has been several day, repots she takes MiraLAX BID at home. She has been following up with a neurologist in [place] for her MS and repots that she was due to be started on a new medication for this once her hepatitis panel came back negative. She will often have tremors and jerks due to MS. CBC/BMP: 01/23/18 0610 01/23/18 0610 Significant Findings Laboratory Tests Test 01/20/18 14:35 01/21/18 03:17 01/21/18 22:35 01/22/18 03:40 Red Blood Count 3.08 MIL/MM3 (4.00-5.30) 3.09 MIL/MM3 (4.00-5.30) 2.63 MIL/MM3 (4.00-5.30) Hemoglobin 9.0 GM/DL (11.6-15.3) 9.1 GM/DL (11.6-15.3) 7.8 GM/DL (11.6-15.3) Bedside Hemoglobin 7.8 G/DL (11.6-15.3) Hematocrit 26.2 % (35.0-46.0) 26.4 % (35.0-46.0) 22.6 % (35.0-46.0) Bedside Hematocrit 23.0 % (35.0-46.0) Bedside Blood Urea Nitrogen 24 MG/DL (5-21) Neutrophils (%) (Auto) 82.6 % (16.0-70.0) 86.4 % (16.0-70.0) Lymphocytes (%) (Auto) 8.0 % (9.0-44.0) 7.0 % (9.0-44.0) Lymphocytes # (Auto) 0.5 TH/MM3 (1.0-4.8) 0.5 TH/MM3 (1.0-4.8) Blood Urea Nitrogen 21 MG/DL (7-18) 20 MG/DL (7-18) Calcium Level 8.0 MG/DL (8.5-10.1) 7.7 MG/DL (8.5-10.1) Estimat Glomerular Filtration Rate 48 ML/MIN (>89) 56 ML/MIN (>89) 25-Hydroxy Vitamin D Total 27.9 ng/ML (30-100) Test 01/22/18 11:12 01/23/18 06:10 Urine Protein 30 mg/dL (NEG-TRACE) Urine Occult Blood SMALL (NEG) Urine Leukocyte Esterase LARGE (NEG) Urine RBC 21 /hpf (0-3) Urine WBC 34 /hpf (0-5) Urine Bacteria OCC /hpf (NONE) Red Blood Count 2.92 MIL/MM3 (4.00-5.30) Hemoglobin 8.5 GM/DL (11.6-15.3) Hematocrit 24.6 % (35.0-46.0) Neutrophils (%) (Auto) 79.7 % (16.0-70.0) Lymphocytes # (Auto) 0.8 TH/MM3 (1.0-4.8) Blood Urea Nitrogen 23 MG/DL (7-18) Creatinine 1.14 MG/DL (0.50-1.00) Calcium Level 7.8 MG/DL (8.5-10.1) Estimat Glomerular Filtration Rate 47 ML/MIN (>89) Imaging Last Impressions Ankle X-Ray 01/21/18 0000 Signed Impressions: Service Date/Time: Sunday, January 21, 2018 12:37 - CONCLUSION: Postsurgical changes. Anton Madison MD Pelvis X-Ray 01/20/181445 Signed Impressions: Service Date/Time: Saturday, January 20, 2018 14:36 - CONCLUSION: 1. No acute fracture identified. Osteopenia. Shant Torres MD Head CT [id number]/20/181445 Signed Impressions: Service Date/Time: Saturday, January 20, 2018 14:56 - CONCLUSION: 1. No acute intracranial abnormalities. Chronic white matter ischemic changes. Shant Torres MD Chest X-Ray 01/20/181445 Signed Impressions: Service Date/Time: Saturday, January 20, 2018 14:36 - CONCLUSION: 1. Mild basilar airspace disease. No significant effusion. Shant Torres MD Tibia/Fibula X-Ray 01/20/18 0000 Signed Impressions: Service Date/Time: Saturday, January 20, 2018 14:36 - CONCLUSION: 1. Medial and lateral malleolar fractures. Osteopenia. Previous resection of the distal segment of fibula. Shant Torres MD Lower Extremity Ultrasound 01/20/18 0000 Signed Impressions: Service Date/Time: Saturday, January 20, 2018 18:54 - CONCLUSION: 1. Negative for deep venous thrombosis. Satinder López MD Lower Extremity CT 01/20/18 0000 Signed Impressions: Service Date/Time: Saturday, January 20, 2018 15:01 - CONCLUSION: 1. Mildly displaced trimalleolar fracture with soft tissue laceration medially and air within the soft tissues around the ankle. Diffuse osteopenia. Shant Torres MD Carotid Artery Ultrasound 01/20/18 0000 Signed Impressions: Service Date/Time: Saturday, January 20, 2018 17:29 - CONCLUSION: Normal hemodynamic profile both carotids. Satinder López MD PE at Discharge GENERAL: Well-nourished, well-developed elderly female patient in [facility]. SKIN: Warm and dry. No rash. HEENT: Normocephalic. Atraumatic. Pupils equal and round. Mucous membranes pink and moist. CARDIOVASCULAR: Regular rate and rhythm. S1, S2 noted. No murmur appreciated. RESPIRATORY: No accessory muscle use. Clear to auscultation. Breath sounds equal bilaterally. GASTROINTESTINAL: Abdomen soft, non-tender, nondistended. Normoactive bowel sounds x4. MUSCULOSKELETAL: No obvious deformities. LLE in surgical splint. Distal toes warm, sensation intact with brisk capillary refill, unable to palpate pulses secondary to surgical dressing. NEUROLOGICAL: Awake and alert. No obvious cranial nerve deficits. Motor grossly within normal limits. Moving all extremities spontaneously. Normal speech. PSYCHIATRIC: Appropriate mood and affect; insight and judgment normal. Pt update on day of discharge Follow up for open left medial and lateral malleolar fractures; MS, chronic UTI. The patient is awake, alert, oriented to person, place, president, year 2017, then when asked multiple times what the month is, she continuously states 2018 despite prompting. She reports continued suprapubic pain and dysuria, although does still have Waterman in place (ordered to remove Waterman). Denies fevers /chills or flank pain. She states her left leg pain is "doing ok". She states she slept very well last night after receiving ambien. She is eating well. Still claiming her last BM was 2 weeks ago. Denies any abdominal pain/nausea/ vomiting. Denies any other medical complaints at this time. Hospital Course 72 year old female admitted as a trauma alert after falling at home with open left ankle fracture. Patient admitted to traumas service with [facility] consulted to assist with ongoing medical management of patient. Open left medial and lateral malleolar fractures: injury occurred as patient's legs just "gave out". Patient seen and evaluated by trauma services, admit to medical surgical floor. Trauma team signed off. Head CT with no acute intracranial abnormalities. Pelvis x-ray with no acute fractures. Vitamin D level low, started on cholecalciferol. Orthopedics consulted, s/p ORIF on . Received IV Ancef and IV Gentamicin per ortho, now completed. Pain control with home oxycodone and IV Dilaudid prn. PT evaluated, recommended discharge to rehab. Case management arranged discharge to [facility]. Right calf pain: No visible injury noted although does endorse pain with calf palpation, full range of motion. U/S negative for DVT. Resolved. MS: Continuing home Baclofen and Neurontin. concern for MS flare responsible for recent weakness. Neuro consulted, appreciate recommendations, does not appear to be in acute flare. Outpatient f/up with neurologist Dr. Olmstead in [place]. Acute on Chronic UTI: U/A with culture done prior to arrival but not in system. Repeat U/A consistent with UTI. CBC reviewed with no leukocytosis, afebrile on presentation. She was continued on Cefuroxime 250mg bid which had been started a few days ago as an outpatient. Removed waterman today 01/23. Monitor urine culture, results pending at discharge, will need to follow up at [facility]. Mild Encephalopathy: patient appears slightly confused at times; suspect secondary to UTI. Continue antibiotic as above. Limit sedating medications. Neuro checks. Constipation: patient claims no BM in 14days, however abdomen nondistended, no N /V, patient tolerating oral intake. Takes Miralax bid at home. Continue miralax bid, MOM bid. Give lactulose prn. Monitor for BM. Insomnia: patient reports she rotates ambien and temazepam every other day. Continue ambien for now, patient reports good response. DVT prophylaxis: Lovenox sq per ortho Pt Condition on Discharge: Stable Discharge Disposition: Rehab Inpatient Discharge Time: > 30 minutes Discharge Instructions DIET: Follow Instructions for: As Tolerated, No Restrictions Activities you can perform: Non Weight Bearing Other Activity Instructions: NWB LLE Follow up Referrals: Orthopedics - 2 Weeks @ [facility] with Smith Thompson MD PCP Follow-up - 1 Month New Medications: Calcium Carbonate-Vitamin D (Calcium 600+D 200) 600-200 Mg-Unit Tab 1 TAB PO BID for Nutritional Supplement for 60 Days, #120 TAB 0 Refills Cholecalciferol (Vitamin D3) 2,000 Unit Cap 2000 UNITS PO DAILY for Nutritional Supplement, #45 CAP 0 Refills Ergocalciferol (Ergocalciferol) 50,000 Unit Cap 53742 UNITS PO Q7D for Nutritional Supplement, #8 CAP Hydrocodone-Acetaminophen (Hydrocodone-Acetaminophen) 7.5 Mg-325 Mg Tab 1 TAB PO Q4H PRN for PAIN, #60 TAB 0 Refills Continued Medications: Acetaminophen (Tylenol) 325 Mg Tab 650 MG PO Q4H PRN for PAIN 1 TO 10 AND/OR AGITATION, TAB [address] (Aspirin 81) 81 Mg Tabdr 81 MG PO DAILY, TAB 0 Refills Baclofen (Baclofen) 20 Mg Tab 20 MG PO TID for Muscle Spasm, TAB 0 Refills Bupropion HCl ER 12 HR (Bupropion HCl ER 12 HR) 150 Mg Tab 150 MG PO BID, #60 TAB Cefuroxime (Cefuroxime) 500 Mg Tab 250 MG PO BID for Infection, TAB 0 Refills Cholecalciferol (Vitamin D-1000) 1,000 Unit Tab 5000 UNITS PO DAILY for Nutritional Supplement, #1 BOTTLE 0 Refills Diazepam (Diazepam) 10 Mg Tab 10 MG PO BID PRN for SPASM, TAB 0 Refills Dimethyl Fumarate (Tecfidera) 240 Mg Cap 240 MG PO BID for Multiple sclerosis, #60 CAP 0 Refills Fluconazole (Fluconazole) 200 Mg Tab 200 MG PO DAILY for Infection, TAB 0 Refills Fluoxetine (Fluoxetine) 20 Mg Capsule 40 MG PO BID, #30 CAP 0 Refills Gabapentin (Gabapentin) 300 Mg Cap 300 MG PO TID, #90 CAP 0 Refills Lactobacillus Acidophilus (Lactinex) 1 Chew 1 TAB CHEW BID for Nutritional Supplement, TAB 0 Refills Mirabegron (Myrbetriq) 25 Mg Tab 25 MG PO DAILY for Urinary Symptom Managemen, #30 TAB 0 Refills Ondansetron Odt (Ondansetron Odt) 4 Mg Tab 4 MG SL Q6HR PRN for Nausea/Vomiting, TAB 0 Refills Oxycodone (Oxycodone) 10 Mg Tab 10 MG PO Q4HR for Pain Management, TAB 0 Refills Pantoprazole (Pantoprazole) 20 Mg Tab 20 MG PO DAILY for Reflux, #30 TAB 0 Refills Polyethylene Glycol 3350 Powder (Polyethylene Glycol 3350 Powder) 17 Gram Pow 17 GM PO BID for Constipation, #1 BOTTLE 0 Refills Psyllium Powder (Psyllium Powder) 100 % Pow 1 PACKET PO DAILY PRN for CONSTIPATION, CONTAINER 0 Refills 1 rounded TEASPOON in 8 oz of liquid at the first sign of irregularity. Sennosides-Docusate Sodium (Docusate Sodium-Senna) 8.6-50 Mg Tab 1 TAB PO BID for Prevent Constipation, #30 TAB 0 Refills Temazepam (Temazepam) 30 Mg Cap 30 MG PO HS, #30 CAP 0 Refills Thyroid,Pork (Thyroid) 90 Mg Tablet 90 MG PO DAILY Trazodone (Trazodone) 300 Mg Tab 300 MG PO HS for Control Depression, #30 TAB 0 Refills Mary Schwab PA-C Jan 23, 2018 12:02
== END 2018-01-23 14:08 | DRG 492 ==
LOC: NEPE 14:35 → NEDA 16:14 → EDBD 16:14 → NEDA 20:42 → NEDH 01-21 06:12 → N06B 01-21 17:24 → N06A 01-23 10:49
PROVIDERS: ADMIT Hospitalist; ATTEND Hospitalist
PROC: 0T9B70Z Drainage of Bladder with Drainage Device, Via Natural or Artificial Opening (ICD-10-PCS; 2018-01-20)
PROC: 0QSK04Z Reposition Left Fibula with Internal Fixation Device, Open Approach (ICD-10-PCS; 2018-01-21)
PROC: 0QSH04Z Reposition Left Tibia with Internal Fixation Device, Open Approach (ICD-10-PCS; principal; 2018-01-21 11:46)
DX: S82.852B Displaced trimalleolar fracture of left lower leg, initial encounter for open fracture type I or II (principal); G93.40 Encephalopathy, unspecified; N39.0 Urinary tract infection, site not specified; F03.90 Unspecified dementia, unspecified severity, without behavioral disturbance, psychotic disturbance, mood disturbance, and anxiety; G35 Multiple sclerosis; R40.2413 Glasgow coma scale score 13-15, at hospital admission; M79.661 Pain in right lower leg; M79.605 Pain in left leg; F32.9 Major depressive disorder, single episode, unspecified; G89.4 Chronic pain syndrome; K59.00 Constipation, unspecified; G47.00 Insomnia, unspecified; M81.0 Age-related osteoporosis without current pathological fracture; E55.9 Vitamin D deficiency, unspecified; W01.0XXA Fall on same level from slipping, tripping and stumbling without subsequent striking against object, initial encounter; R29.6 Repeated falls; Y92.009 Unspecified place in unspecified non-institutional (private) residence as the place of occurrence of the external cause; Z98.1 Arthrodesis status; Z88.5 Allergy status to narcotic agent; Z23 Encounter for immunization
CPT/HCPCS: 29515; 70450; 71045; 72170; 73590; 73600; 73700; 76000; 80048; 81001; 82306; 85025; 85610; 85730; 86850; 86900; 86901; 87086; 90471; 90715; 93005; 93880; 93971; 94150; 96365; 96375; 99291; C1713; G0390; J0131; J0690; J0696; J1100; J1170; J1580; J1650; J1885; J2060; J2370; J2405; J2710; J3010; J7120